=== PATIENT | female | born 1945 | race Caucasian/White ===

== ENCOUNTER 2017-06-01 11:11 | Emergency (ER) | payer MEDICARE, BC ==
[2017-06-01] MEDS ORDERED: Ondansetron 4 MG/2 ML SDV IVPUSH ONE (11:31)
[2017-06-01] MEDS ORDERED: Sodium Chloride 0.9% 1,000 ML IV ONE (11:32)
[2017-06-01] MEDS ORDERED: Levofloxacin/Dextrose 5%-Water 500 MG in Premix Bag 1 BAG IV ONE (14:57)
[2017-06-01] MEDS ORDERED: Meclizine 25 MG Tab PO ONE (14:57)
--- NOTE | 2017-06-01 16:14 | EDM.PDOC ---
ED HPI GENERAL MEDICAL PROBLEM - General Chief Complaint: Neuro Symptoms/Deficits Stated Complaint: PAIN Time Seen by Provider: 06/01/17 11:20 Source of Information: Reports: Patient, Family History Limitations: Reports: No Limitations - History of Present Illness INITIAL COMMENTS - FREE TEXT/NARRATIVE: 71 y.o.w.f came with her SO due to Dizziness and lower abd. pain. Pt is not able to ambulate due to severe dizziness. No H/O Vertigo. Pt was brought to the ed by his SO by wheelchair. Dizziness got worse when turning the head. as per SO , pt is confused, disoriented as well. No N/V/D or any other acute medical issues. BP 150/69 pulse 64 temp 36.4 pulse ox 97% Onset: Today Onset Date: 05/03/17 Onset Time: 15:00 Duration: Intermittent Location: Reports: Head, Abdomen - Related Data Allergies Allergy/AdvReac Type Severity Reaction Status Date / Time aspirin Allergy Pain Verified 06/01/17 11:26 Home Meds: Home Meds Acetaminophen [Tylenol Extra Strength] 500 mg PO Q4H PRN 06/01/17 [History] Amphetamine/Dextroamphetamine [Adderall] 10 mg PO DAILY 06/01/17 [History] Ciprofloxacin HCl [Cipro] 500 mg PO BID #20 tablet 06/01/17 [Rx] Meclizine [Antivert] 25 mg PO Q6H PRN #20 tab.chew 06/01/17 [Rx] Pseudoephedrine HCl [Sudafed 12-Hour] 120 mg PO DAILY 06/01/17 [History] Past Medical History HEENT History: Reports: Cataract Gastrointestinal History: Reports: Other (See Below) Other Gastrointestinal History: Redundant colon- problem passing stool 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: 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 History: Reports: Other (See Below) Other Neuro History: Headaches Psychiatric History: Reports: Anxiety, Depression Dermatologic History: Reports: Eczema - Infectious Disease History Infectious Disease History: Reports: Chicken Pox, Measles, Mumps - Past Surgical History HEENT Surgical History: Reports: Cataract Surgery, Tonsillectomy Other Respiratory Surgeries/Procedures: congestion issues GI Surgical History: Reports: Colonoscopy Female Surgical History: Reports: None 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 Surgical History: Reports: None Social & Family History - Family History Family Medical History: Noncontributory - Tobacco Use Smoking Status *Q: Never Smoker Second Hand Smoke Exposure: No - Caffeine Use Caffeine Use: Reports: Tea - Recreational Drug Use Recreational Drug Use: No ED ROS GENERAL - Review of Systems Review Of Systems: See Below Constitutional: Reports: Malaise, Fatigue HEENT: Reports: No Symptoms Respiratory: Reports: No Symptoms Cardiovascular: Reports: No Symptoms Endocrine: Reports: No Symptoms GI/Abdominal: Reports: Abdominal Pain (lower abd. ) : Reports: Dysuria, Frequency, Hematuria Musculoskeletal: Reports: No Symptoms Skin: Reports: No Symptoms 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: Reports: No Symptoms Psychiatric: Reports: No Symptoms Hematologic/Lymphatic: Reports: No Symptoms Immunologic: Reports: No Symptoms ED EXAM, NEURO - Physical Exam Exam: See Below Exam Limited By: Altered Mental Status General Appearance: Alert, WD/WN, Moderate Distress, Thin Eye Exam: Bilateral Eye: Normal Inspection Ears: Normal External Exam Nose: Normal Inspection, Normal Mucosa Throat/Mouth: Other (dry mucosal membrane) Head Exam: Atraumatic, Normocephalic Neck: Normal Inspection, Supple, Non-Tender, Full Range of Motion Respiratory/Chest: No Respiratory Distress, Lungs Clear, Normal Breath Sounds Cardiovascular: Normal Peripheral Pulses, Regular Rate, Rhythm, No Edema, No Gallop GI/Abdominal: Normal Bowel Sounds (Female) Exam: Deferred Rectal (Female) Exam: Deferred 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: Alert, Normal Dorsiflexion, CN II-XII Intact, Difficulty Walking ( due to dizziness) Back Exam: Normal Inspection, Full Range of Motion Extremities: Normal Inspection, Normal Range of Motion, Non-Tender Psychiatric: Normal Affect, Normal Mood Skin Exam: Warm, Dry, Intact, Normal Color, No Rash Course - Vital Signs Text/Narrative:: 71 y.o.w.f came with her SO due to Dizziness and lower abd. pain. Pt is not able to ambulate due to severe dizziness. No H/O Vertigo. Pt was brought to the ed by his SO by wheelchair. Dizziness got worse when turning the head. as per SO , pt is confused, disoriented as well. No N/V/D or any other acute medical issues. BP 150/69 pulse 64 temp 36.4 pulse ox 97% PE: Dry mucosal membranes bilat nystagmus, lower abd. pain Imaging: CT Head: NAD Labs: UA pos for UTI with hematuria Impression: Dehydration, Vertigo, UTI Tx: NS, Levoquine, Antivert Reexam; Improved, pt was able to ambulate, wants to be d/c Plan: D/C with instruction Last Recorded V/S: Last Vital Signs Temp 36.6 C 06/01/17 17:05 Pulse 75 06/01/17 17:05 Resp 20 06/01/17 17:05 BP 140/69 06/01/17 17:05 Pulse Ox 99 06/01/17 17:05 - Orders/Labs/Meds Labs: Laboratory Tests 06/01/17 06/01/17 06/01/17 Range/Units 11:50 11:50 11:50 WBC 5.2 (4.5-12.0) X10-3/uL RBC 5.04 (3.23-5.20) x10(6)uL Hgb 15.0 (11.5-15.5) g/dL Hct 43.4 (30.0-51.3) % MCV 86.1 (80-96) fL MCH 29.6 (27.7-33.6) pg MCHC 34.4 (32.2-35.4) g/dL RDW 13.8 (11.5-15.5) % Plt Count 336 (125-369) X10(3)uL MPV 7.4 (7.4-10.4) fL Neut % (Auto) 64.3 (46-82) % Lymph % (Auto) 27.7 (13-37) % [place] % (Auto) 6.8 (4-12) % Eos % (Auto) 1 (1.0-5.0) % Baso % (Auto) 1 (0-2) % Neut # (Auto) 3.4 (1.6-8.3) # Lymph # (Auto) 1.4 (0.6-5.0) # [place] # (Auto) 0.4 (0.0-1.3) # Eos # (Auto) 0.0 (0.0-0.8) # Baso # (Auto) 0.0 (0.0-0.2) # PT 11.6 H (8.7-11.1) INR 1.15 H (0.89-1.13) Sodium 139 (135-145) mmol/L Potassium 3.8 (3.5-5.3) mmol/L Chloride 103 (100-110) mmol/L Carbon Dioxide 29 (21-32) mmol/L BUN 19 H (7-18) mg/dL Creatinine 0.7 (0.55-1.02) mg/dL Est Cr Clr Drug Dosing 75.44 mL/min Estimated GFR (MDRD) > 60 (>60) BUN/Creatinine Ratio 27.1 H (9-20) Glucose 119 H (80-116) mg/dL Calcium 9.1 (8.6-10.2) mg/dL NT-Pro-B Natriuret Pep (<=125) pg/mL Urine Color (YELLOW) Urine Appearance (CLEAR) Urine pH (5.0-6.5) Ur Specific [place] (1.010-1.025) Urine Protein (NEGATIVE) mg/dL Urine Glucose (UA) (NEGATIVE) mg/dL Urine Ketones (NEGATIVE) mg/dL Urine Occult Blood (NEGATIVE) Urine Nitrite (NEGATIVE) Urine Bilirubin (NEGATIVE) Urine Urobilinogen (NEGATIVE) mg/dL Ur Leukocyte Esterase (NEGATIVE) Urine RBC (0) Urine WBC (0) Ur Squamous Epith Cells (NS,R,O) Urine Bacteria (NS) 06/01/17 06/01/17 Range/Units 11:50 13:48 WBC (4.5-12.0) X10-3/uL RBC (3.23-5.20) x10(6)uL Hgb (11.5-15.5) g/dL Hct (30.0-51.3) % MCV (80-96) fL MCH (27.7-33.6) pg MCHC (32.2-35.4) g/dL RDW (11.5-15.5) % Plt Count (125-369) X10(3)uL MPV (7.4-10.4) fL Neut % (Auto) (46-82) % Lymph % (Auto) (13-37) % [place] % (Auto) (4-12) % Eos % (Auto) (1.0-5.0) % Baso % (Auto) (0-2) % Neut # (Auto) (1.6-8.3) # Lymph # (Auto) (0.6-5.0) # [place] # (Auto) (0.0-1.3) # Eos # (Auto) (0.0-0.8) # Baso # (Auto) (0.0-0.2) # PT (8.7-11.1) INR (0.89-1.13) Sodium (135-145) mmol/L Potassium (3.5-5.3) mmol/L Chloride (100-110) mmol/L Carbon Dioxide (21-32) mmol/L BUN (7-18) mg/dL Creatinine (0.55-1.02) mg/dL Est Cr Clr Drug Dosing mL/min Estimated GFR (MDRD) (>60) BUN/Creatinine Ratio (9-20) Glucose (80-116) mg/dL Calcium (8.6-10.2) mg/dL NT-Pro-B Natriuret Pep 205 H (<=125) pg/mL Urine Color Yellow (YELLOW) Urine Appearance Cloudy (CLEAR) Urine pH 6.0 (5.0-6.5) Ur Specific [place] 1.025 (1.010-1.025) Urine Protein Negative (NEGATIVE) mg/dL Urine Glucose (UA) Normal (NEGATIVE) mg/dL Urine Ketones 15 H (NEGATIVE) mg/dL Urine Occult Blood Moderate H (NEGATIVE) Urine Nitrite Negative (NEGATIVE) Urine Bilirubin Negative (NEGATIVE) Urine Urobilinogen 1 H (NEGATIVE) mg/dL Ur Leukocyte Esterase Moderate H (NEGATIVE) Urine RBC 5-10 (0) Urine WBC 20-30 H (0) Ur Squamous Epith Cells Few H (NS,R,O) Urine Bacteria Many H (NS) Meds: Medications Discontinued Medications Generic Name Dose Route Start Last Admin Trade Name Grey PRN Reason Stop Dose Admin Sodium Chloride 1,000 mls @ 999 mls/hr 06/01/17 11:32 06/01/17 12:11 Normal Saline IV 06/01/17 12:32 999 mls/hr .BOLUS ONE Administration Levofloxacin/Dextrose 500 mg/ 100 mls @ 100 mls/hr 06/01/17 14:57 06/01/17 15 :04 Premix IV 06/01/17 15:56 100 mls/hr ONETIME ONE Administration Meclizine HCl 50 mg 06/01/17 14:57 06/01/17 15:03 Antivert PO 06/01/17 14:58 50 mg ONETIME ONE Administration Ondansetron HCl 8 mg 06/01/17 11:31 06/01/17 12:30 Zofran IVPUSH 06/01/17 11:32 8 mg ONETIME ONE Administration Departure - Departure Time of Disposition: 16:39 Disposition: Home, Self-Care 01 Condition: Good Clinical Impression: Dehydration, Vertigo UTI (urinary tract infection) Qualifiers: Urinary tract infection type: acute cystitis Hematuria presence: with hematuria Qualified Code(s): N30.01 - Acute cystitis with hematuria - Discharge Information Prescriptions: Ciprofloxacin HCl [Cipro] 500 mg PO BID #20 tablet Meclizine [Antivert] 25 mg PO Q6H PRN #20 tab.chew PRN Reason: Dizziness Instructions: Vertigo, [id number], Urinary Tract Infection, Adult, Dehydration, Elderly, [id number] Referrals: Emily Ivy, K[employer] WORK SUPERVISOR [Primary Care Provider] - Forms: ED Department Discharge Additional Instructions: Please increase water inake, please take cipro and antivert as recommended, please follow up, come back if your symptoms get worse acutely
== END 2017-06-01 17:10 | disposition home or self-care (01) ==
LOC: FB.ED 11:11
DX: N30.01 Acute cystitis with hematuria (principal); E86.0 Dehydration; Z88.6 Allergy status to analgesic agent
CPT/HCPCS: 36415; 70450; 80048; 81001; 83880; 85025; 85610; 87086; 87088; 96361; 96365; 96375; 99284; A9270; J1956; J2405; J7040; 87186; 99283

== ENCOUNTER 2018-07-07 19:48 | Emergency (ER) | payer MEDICARE, BC ==
--- NOTE | 2018-07-07 20:04 | EDM.PDOC ---
ED HPI GENERAL MEDICAL PROBLEM - General Stated Complaint: BLADDER INFECTION Time Seen by Provider: 07/07/18 19:48 Source of Information: Reports: Patient, Family History Limitations: Reports: No Limitations - History of Present Illness INITIAL COMMENTS - FREE TEXT/NARRATIVE: 72 y.o.w.f come to the ed with painful and frequent urinations, no trauma no other acute medical issues. BP 154/82 Pulse ox 98% on RA Temp 98.3 RR 18 Pulse 75 Onset Date: 07/07/18 Onset Time: 08:00 Duration: Day(s):, Getting Worse, Intermittent Location: Reports: Pelvis Quality: Reports: Burning Severity: Moderate Improves with: Reports: None Worsens with: Reports: None Context: Reports: Other Associated Symptoms: Reports: No Other Symptoms - Related Data Allergies Allergy/AdvReac Type Severity Reaction Status Date / Time aspirin Allergy Pain Verified 06/01/17 11:26 Home Meds: Home Meds Acetaminophen [Tylenol Extra Strength] 500 mg PO Q4H PRN 06/01/17 [History] Amphetamine/Dextroamphetamine [Adderall] 10 mg PO DAILY 06/01/17 [History] Ciprofloxacin HCl [Cipro] 500 mg PO BID #20 tablet 06/01/17 [Rx] Meclizine [Antivert] 25 mg PO Q6H PRN #20 tab.chew 06/01/17 [Rx] Pseudoephedrine HCl [Sudafed 12-Hour] 120 mg PO DAILY 06/01/17 [History] Ciprofloxacin HCl [Cipro] 500 mg PO BID #20 tablet 07/07/18 [Rx] Phenazopyridine HCl [Pyridium] 200 mg PO Q8HR #9 tablet 07/07/18 [Rx] Past Medical History HEENT History: Reports: Cataract Gastrointestinal History: Reports: Other (See Below) Other Gastrointestinal History: Redundant colon- problem passing stool 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: 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 History: Reports: Other (See Below) Other Neuro History: Headaches Psychiatric History: Reports: Anxiety, Depression Dermatologic History: Reports: Eczema - Infectious Disease History Infectious Disease History: Reports: Chicken Pox, Measles, Mumps - Past Surgical History HEENT Surgical History: Reports: Cataract Surgery, Tonsillectomy Other Respiratory Surgeries/Procedures: congestion issues GI Surgical History: Reports: Colonoscopy Female Surgical History: Reports: None 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 Surgical History: Reports: None Social & Family History - Family History Family Medical History: Noncontributory - Caffeine Use Caffeine Use: Reports: Tea ED ROS GENERAL - Review of Systems Review Of Systems: See Below Constitutional: Reports: No Symptoms HEENT: Reports: No Symptoms Respiratory: Reports: No Symptoms Cardiovascular: Reports: No Symptoms Endocrine: Reports: No Symptoms GI/Abdominal: Reports: No Symptoms : Reports: Dysuria, Frequency Musculoskeletal: Reports: No Symptoms Skin: Reports: No Symptoms 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: Reports: No Symptoms Psychiatric: Reports: No Symptoms Hematologic/Lymphatic: Reports: No Symptoms Immunologic: Reports: No Symptoms ED EXAM, RENAL/ - Physical Exam Exam: See Below Exam Limited By: No Limitations General Appearance: Alert, WD/WN, Mild Distress Eye Exam: Bilateral Eye: Normal Inspection Ears: Normal External Exam, Normal Canal Nose: Normal Inspection, Normal Mucosa, No Blood Throat/Mouth: Normal Inspection, Normal Lips, Normal Voice, No Airway Compromise Head: Atraumatic, Normocephalic Neck: Normal Inspection, Supple, Non-Tender, Full Range of Motion Respiratory/Chest: No Respiratory Distress, Lungs Clear, Normal Breath Sounds, No Accessory Muscle Use, Chest Non-Tender Cardiovascular: Normal Peripheral Pulses, Regular Rate, Rhythm, No Edema, No Gallop, No JVD, No Murmur, No Rub GI/Abdominal: Normal Bowel Sounds, Soft, Non-Tender, No Organomegaly, No Distention, No Abnormal Bruit, No Mass, Pelvis Stable (Female) Exam: Deferred Rectal (Female) Exam: Deferred Back Exam: Normal Inspection, Full Range of Motion Extremities: Normal Inspection, Normal Range of Motion, Non-Tender, No Pedal Edema, Normal Capillary Refill 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: Alert, Oriented, CN II-XII Intact, Normal Cognition, Normal Gait, Normal Reflexes, No Motor/Sensory Deficits Psychiatric: Normal Affect, Normal Mood Skin Exam: Warm, Dry, Intact, Normal Color, No Rash Lymphatic: No Adenopathy Course - Vital Signs Text/Narrative:: 72 y.o.w.f come to the ed with painful and frequent urinations, no trauma no other acute medical issues. BP 154/82 Pulse ox 98% on RA Temp 98.3 RR 18 Pulse 75 PE: WNWD W F with dysuria Labs: UA pos for UTI< U Cx result is pending Impression: UTI Tx: Levoquine, Pyridium Reexam: Improved Plan: D/C with instructions - Orders/Labs/Meds Orders: Active Orders 24 hr Category Date Time Status CULTURE URINE [RM] Stat Lab 07/07/18 19:55 Received Phenazopyridine [Urinary Pain Relief] Med 07/08/18 09:00 Active 95 mg PO TIDPC Medication Orders Phenazopyridine HCl (Urinary Pain Relief) 95 mg PO TIDPC RICHARD Last Admin: 07/07/18 20:31 Dose: 95 mg Labs: Laboratory Tests 07/07/18 Range/Units 19:55 Urine Color Yellow (YELLOW) Urine Appearance Clear (CLEAR) Urine pH 7.0 H (5.0-6.5) Ur Specific [place] 1.015 (1.010-1.025) Urine Protein Negative (NEGATIVE) mg/dL Urine Glucose (UA) Normal (NEGATIVE) mg/dL Urine Ketones Negative (NEGATIVE) mg/dL Urine Occult Blood Negative (NEGATIVE) Urine Nitrite Negative (NEGATIVE) Urine Bilirubin Negative (NEGATIVE) Urine Urobilinogen Normal (NEGATIVE) mg/dL Ur Leukocyte Esterase Small H (NEGATIVE) Urine RBC 0-5 (0) Urine WBC 0-5 (0) Ur Squamous Epith Cells Few H (NS,R,O) Urine Bacteria Moderate H (NS) Meds: Medications Generic Name Dose Route Start Last Admin Trade Name Freq PRN Reason Stop Dose Admin Phenazopyridine HCl 95 mg 07/08/18 09:00 07/07/18 20:31 Urinary Pain Relief PO 95 mg TIDPC RICHARD Administration Discontinued Medications Generic Name Dose Route Start Last Admin Trade Name Freq PRN Reason Stop Dose Admin Levofloxacin 500 mg 07/07/18 20:08 07/07/18 20:27 Levaquin PO 07/07/18 20:09 500 mg ONETIME ONE Administration Phenazopyridine HCl Confirm 07/07/18 20:30 Urinary Pain Relief Administered 07/07/18 20:31 Dose 95 mg .ROUTE .STK-MED ONE Departure - Departure Time of Disposition: 20:10 Disposition: Home, Self-Care 01 Condition: Good Clinical Impression: UTI (urinary tract infection) Qualifiers: Urinary tract infection type: acute cystitis Hematuria presence: with hematuria Qualified Code(s): N30.01 - Acute cystitis with hematuria - Discharge Information Prescriptions: Phenazopyridine HCl [Pyridium] 200 mg PO Q8HR #9 tablet Ciprofloxacin HCl [Cipro] 500 mg PO BID #20 tablet Referrals: Emily Ivy, SR. PAYROLL PROCESSOR [Primary Care Provider] - Forms: ED Department Discharge Additional Instructions: Please increase water intake, please take the meds as recommended, please f/u, come back if your symptoms get worse acutely. - My Orders Last 24 Hours: My Active Orders 07/07/18 19:55 CULTURE URINE [RM] Stat 07/08/18 09:00 Phenazopyridine [Urinary Pain Relief] 95 mg PO TIDPC - Assessment/Plan Last 24 Hours: My Active Orders 07/07/18 19:55 CULTURE URINE [RM] Stat 07/08/18 09:00 Phenazopyridine [Urinary Pain Relief] 95 mg PO TIDPC
[2018-07-07] MEDS ORDERED: Levofloxacin 500 MG Tab PO ONE (20:08)
[2018-07-07] MEDS ORDERED: Phenazopyridine 95 MG Tab ONE (20:30)
[2018-07-08] MEDS ORDERED: Phenazopyridine 95 MG Tab PO SCH (09:00)
== END 2018-07-07 20:40 | disposition home or self-care (01) ==
LOC: FB.ED 19:48
DX: N30.01 Acute cystitis with hematuria (principal); Z79.899 Other long term (current) drug therapy; Z88.6 Allergy status to analgesic agent; Z90.89 Acquired absence of other organs
CPT/HCPCS: 81001; 87086; 99283; A9270-GY

== ENCOUNTER 2018-07-10 16:04 | Emergency (ER) | payer MEDICARE, BC ==
[2018-07-10] MEDS ORDERED: Ketorolac 30 MG/ML SDV IM ONE (16:29)
--- NOTE | 2018-07-10 16:31 | EDM.PDOC ---
ED HPI GENERAL MEDICAL PROBLEM - General Chief Complaint: Back Pain or Injury Stated Complaint: BACK PAIN Time Seen by Provider: 07/10/18 16:04 Source of Information: Reports: Patient, Family History Limitations: Reports: No Limitations - History of Present Illness INITIAL COMMENTS - FREE TEXT/NARRATIVE: 72 y.o.w.f came to the ed due to mid lower back pain and bilateral plank pain. Pt had a BM ELECTROLYSIS INVESTIGATOR, which improved her symptoms somewhat. No Trauma. Pt seen by me last Sunday for UTI symptoms. Pt was given Cipro and her dysuria subsided. Pt is scheduled for a colonoscopy this Sunday. She has a few episodes with blood in her stool. No N/V/D or any other acute medical issues. BP 131/90 RR 18 Pulse ox 97% on RA Temp 36.8 pulse 81 Onset Date: 07/09/18 Onset Time: 06:00 Duration: Day(s):, Getting Worse, Intermittent Location: Reports: Abdomen, Back Quality: Reports: Dull, Pressure Severity: Moderate Improves with: Reports: Rest Worsens with: Reports: Movement Context: Reports: Sick Contact - Related Data Allergies Allergy/AdvReac Type Severity Reaction Status Date / Time aspirin Allergy Stomach Verified 07/10/18 16:46 Upset bupropion [From Wellbutrin] Allergy Stomach Verified 07/10/18 16:46 Upset diazepam [From Valium] Allergy Hallucinati Verified 07/10/18 16:46 ons Home Meds: Home Meds Acetaminophen [Tylenol Extra Strength] 500 mg PO Q4H PRN 06/01/17 [History] Ciprofloxacin HCl [Cipro] 500 mg PO BID #20 tablet 07/07/18 [Rx] Phenazopyridine HCl [Pyridium] 200 mg PO Q8HR #9 tablet 07/07/18 [Rx] Lisinopril 10 mg PO DAILY 07/08/18 [History] Past Medical History HEENT History: Reports: Cataract Gastrointestinal History: Reports: Other (See Below) Other Gastrointestinal History: Redundant colon- problem passing stool 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 Dermatologic History: Reports: Eczema - Infectious Disease History Infectious Disease History: Reports: Chicken Pox, Measles, Mumps - Past Surgical History HEENT Surgical History: Reports: Cataract Surgery, Tonsillectomy Other Respiratory Surgeries/Procedures: congestion issues GI Surgical History: Reports: Colonoscopy Female Surgical History: Reports: None 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 Surgical History: Reports: None Social & Family History - Family History Family Medical History: Noncontributory - Caffeine Use Caffeine Use: Reports: Tea ED ROS GENERAL - Review of Systems Review Of Systems: See Below Constitutional: Reports: No Symptoms HEENT: Reports: No Symptoms Respiratory: Reports: No Symptoms Cardiovascular: Reports: No Symptoms Endocrine: Reports: No Symptoms GI/Abdominal: Reports: Abdominal Pain (flank pain), Constipation, Hematochezia ( one time) : Reports: No Symptoms Musculoskeletal: Reports: Back Pain Skin: Reports: No Symptoms 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: Reports: No Symptoms Psychiatric: Reports: No Symptoms Hematologic/Lymphatic: Reports: No Symptoms Immunologic: Reports: No Symptoms ED EXAM,LOWER BACK PAIN/INJURY - Physical Exam Exam: See Below Exam Limited By: Physical Impairment General Appearance: Alert, WD/WN, Mild Distress Eye Exam: Bilateral Eye: Normal Inspection Ears: Normal External Exam Nose: Normal Inspection, Normal Mucosa Throat/Mouth: Normal Inspection, Normal Lips, Normal Voice, No Airway Compromise Head: Atraumatic, Normocephalic Neck: Normal Inspection, Supple, Non-Tender, Full Range of Motion Respiratory/Chest: No Respiratory Distress, Lungs Clear, Normal Breath Sounds, No Accessory Muscle Use, Chest Non-Tender Cardiovascular: Normal Peripheral Pulses, Regular Rate, Rhythm, No Edema, No Murmur GI/Abdominal: Normal Bowel Sounds, Soft, Pelvis Stable, Tender (lower back/si joint, CVA tenderness) (Female) Exam: Deferred Rectal (Female) Exam: Deferred Back Exam: Normal Inspection, CVA Tenderness (R), CVA Tenderness (L), Decreased Range of Motion Extremities: Normal Inspection, Normal Range of Motion, Non-Tender, No Pedal Edema, Normal Capillary Refill 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: Alert, Normal Mood/Affect, Normal Dorsiflexion, CN II-XII Intact, Normal Gait, Oriented x 3 Psychiatric: Normal Affect, Normal Mood Skin Exam: Warm, Dry, Intact, Normal Color, No Rash Lymphatic: No Adenopathy Course - Vital Signs Text/Narrative:: 72 y.o.w.f came to the ed due to mid lower back pain and bilateral plank pain. Pt had a BM ELECTROLYSIS INVESTIGATOR, which improved her symptoms somewhat. No Trauma. Pt seen by me last Sunday for UTI symptoms. Pt was given Cipro and her dysuria subsided. Pt is scheduled for a colonoscopy this Sunday. She has a few episodes with blood in her stool. No N/V/D or any other acute medical issues. BP 131/90 RR 18 Pulse ox 97% on RA Temp 36.8 pulse 81 PE: WNWD W F with low back pain, alina flank pain and blood in her stool X3 Imaging: Abd/pelvis: Smal left lung nodule 10 mm (possible old) Labs: CBC whowed a WBC of 3.9 UA pos for nitrated, no WBC in urine. BMP nl OLactic acid 0.9 Impression: Viral syndrome, low back pain, Pos Urine nitrates. Nodule 10 mm in lung Tx:Toradol Reexam: Improved Plan: D/C with instructions Last Recorded V/S: Last Vital Signs Temp 36.6 C 07/10/18 16:05 Pulse 85 07/10/18 16:05 Resp 18 07/10/18 16:05 BP 131/90 07/10/18 16:05 Pulse Ox 97 07/10/18 16:05 - Orders/Labs/Meds Orders: Active Orders 24 hr Category Date Time Status Abdomen Pelvis w Cont [CT] Stat Exams 07/10/18 16:28 Taken Labs: Laboratory Tests 07/10/18 07/10/18 07/10/18 Range/Units 16:40 16:40 16:40 WBC 3.9 L (4.5-12.0) X10-3/uL RBC 5.07 (3.23-5.20) x10(6)uL Hgb 15.0 (11.5-15.5) g/dL Hct 45.0 (30.0-51.3) % MCV 88.8 (80-96) fL MCH 29.7 (27.7-33.6) pg MCHC 33.4 (32.2-35.4) g/dL RDW 14.1 (11.5-15.5) % Plt Count 342 (125-369) X10(3)uL MPV 7.6 (7.4-10.4) fL Neut % (Auto) 54.8 (46-82) % Lymph % (Auto) 32.1 (13-37) % Teller % (Auto) 11.2 (4-12) % Eos % (Auto) 1 (1.0-5.0) % Baso % (Auto) 1 (0-2) % Neut # (Auto) 2.2 (1.6-8.3) # Lymph # (Auto) 1.3 (0.6-5.0) # Teller # (Auto) 0.4 (0.0-1.3) # Eos # (Auto) 0.0 (0.0-0.8) # Baso # (Auto) 0.0 (0.0-0.2) # PT 10.9 (8.7-11.1) INR 1.12 (0.89-1.13) Sodium 137 (135-145) mmol/L Potassium 4.1 (3.5-5.3) mmol/L Chloride 101 (100-110) mmol/L Carbon Dioxide 29 (21-32) mmol/L BUN 13 (7-18) mg/dL Creatinine 0.9 (0.55-1.02) mg/dL Est Cr Clr Drug Dosing TNP Estimated GFR (MDRD) > 60 (>60) BUN/Creatinine Ratio 14.4 (9-20) Glucose 111 (80-116) mg/dL Lactic Acid (0.4-2.2) mmol/L Calcium 9.8 (8.6-10.2) mg/dL Urine Color (YELLOW) Urine Appearance (CLEAR) Urine pH (5.0-6.5) Ur Specific [place] (1.010-1.025) Urine Protein (NEGATIVE) mg/dL Urine Glucose (UA) (NEGATIVE) mg/dL Urine Ketones (NEGATIVE) mg/dL Urine Occult Blood (NEGATIVE) Urine Nitrite (NEGATIVE) Urine Bilirubin (NEGATIVE) Urine Urobilinogen (NEGATIVE) mg/dL Ur Leukocyte Esterase (NEGATIVE) Urine RBC (0) Urine WBC (0) Ur Squamous Epith Cells (NS,R,O) Urine Bacteria (NS) 07/10/18 07/10/18 Range/Units 16:40 16:50 WBC (4.5-12.0) X10-3/uL RBC (3.23-5.20) x10(6)uL Hgb (11.5-15.5) g/dL Hct (30.0-51.3) % MCV (80-96) fL MCH (27.7-33.6) pg MCHC (32.2-35.4) g/dL RDW (11.5-15.5) % Plt Count (125-369) X10(3)uL MPV (7.4-10.4) fL Neut % (Auto) (46-82) % Lymph % (Auto) (13-37) % Teller % (Auto) (4-12) % Eos % (Auto) (1.0-5.0) % Baso % (Auto) (0-2) % Neut # (Auto) (1.6-8.3) # Lymph # (Auto) (0.6-5.0) # Teller # (Auto) (0.0-1.3) # Eos # (Auto) (0.0-0.8) # Baso # (Auto) (0.0-0.2) # PT (8.7-11.1) INR (0.89-1.13) Sodium (135-145) mmol/L Potassium (3.5-5.3) mmol/L Chloride (100-110) mmol/L Carbon Dioxide (21-32) mmol/L BUN (7-18) mg/dL Creatinine (0.55-1.02) mg/dL Est Cr Clr Drug Dosing Estimated GFR (MDRD) (>60) BUN/Creatinine Ratio (9-20) Glucose (80-116) mg/dL Lactic Acid 0.9 (0.4-2.2) mmol/L Calcium (8.6-10.2) mg/dL Urine Color Yellow (YELLOW) Urine Appearance Clear (CLEAR) Urine pH 7.0 H (5.0-6.5) Ur Specific [place] 1.005 L (1.010-1.025) Urine Protein 100 H (NEGATIVE) mg/dL Urine Glucose (UA) Normal (NEGATIVE) mg/dL Urine Ketones Negative (NEGATIVE) mg/dL Urine Occult Blood Negative (NEGATIVE) Urine Nitrite Positive H (NEGATIVE) Urine Bilirubin Moderate H (NEGATIVE) Urine Urobilinogen 8 H (NEGATIVE) mg/dL Ur Leukocyte Esterase Negative (NEGATIVE) Urine RBC 0-5 (0) Urine WBC 0-5 (0) Ur Squamous Epith Cells Rare (NS,R,O) Urine Bacteria Few H (NS) Meds: Medications Discontinued Medications Generic Name Dose Route Start Last Admin Trade Name Grey PRN Reason Stop Dose Admin Diatrizoate Meglum/Diatrizoate Sod 30 ml 07/10/18 17:00 07/10/18 17:43 Gastrografin 37% PO 30 ml . DIRECTED RICHARD Administration Iopamidol 75 ml 07/10/18 16:56 07/10/18 17:42 Isovue-370 (76%) IV 07/10/18 16:57 75 ml ONETIME ONE Administration Ketorolac Tromethamine 30 mg 07/10/18 16:29 07/10/18 17:15 Toradol IM 07/10/18 16:30 30 mg ONETIME ONE Administration Departure - Departure Time of Disposition: 18:34 Disposition: Home, Self-Care 01 Condition: Good Clinical Impression: Back pain at L4-L5 level UTI (urinary tract infection) Qualifiers: Urinary tract infection type: acute cystitis Hematuria presence: with hematuria Qualified Code(s): N30.01 - Acute cystitis with hematuria - Discharge Information Referrals: Emily Ivy [facility] [Primary Care Provider] - Forms: ED Department Discharge Additional Instructions: Please f/u. tale motrin with food, come back if your symptoms get worse acutely - My Orders Last 24 Hours: My Active Orders 07/10/18 16:28 Abdomen Pelvis w Cont [CT] Stat - Assessment/Plan Last 24 Hours: My Active Orders 07/10/18 16:28 Abdomen Pelvis w Cont [CT] Stat
[2018-07-10] MEDS ORDERED: Iopamidol 755 Mg/ML 75 ML Bottle IV ONE (16:56)
[2018-07-10] MEDS ORDERED: Diatrizoate Meglumine/Diatrizoate Sodium 37% 30 ML Bottle PO SCH (17:00)
== END 2018-07-10 18:40 | disposition home or self-care (01) ==
LOC: FB.ED 16:04
DX: N30.01 Acute cystitis with hematuria (principal); M54.5 Low back pain; R91.8 Other nonspecific abnormal finding of lung field; Z88.8 Allergy status to other drugs, medicaments and biological substances
CPT/HCPCS: 36415; 74177; 80048; 81001; 83605; 85025; 85610; 96372; 99284; J1885; Q9963; Q9967; 99283

== ENCOUNTER 2018-10-02 07:47 | Day surgery (SDC) | payer MEDICARE, BC ==
[~2018-10-02 07:47] MED LIST: Lactated Ringers 1,000 ML IV SCH; Sodium Chloride 0.9% 10 ML Syringe FLUSH PRN
[2018-10-02] MEDS ORDERED: Propofol 200 MG/20 ML SDV IV ONE (07:48)
[2018-10-02] MEDS ORDERED: Lidocaine 2% 100 MG/5 ML Syringe IVPUSH ONE (07:48)
--- NOTE | 2018-10-02 09:15 | PCM.OPNOTE ---
- General Post-Op/Procedure Note Date of Surgery/Procedure: 10/02/18 Operative Procedure(s): egd with bx Findings: gastroduodenitis fundic gland polyps Pre Op Diagnosis: epigastric abd pain Post-Op Diagnosis: gastroduodenitis. fundic gland polyps Anesthesia Technique: LUIS Primary Surgeon: Sergio Kerr Anesthesia Provider: Justin Florian Pathology: stomach and duodenum Complications: None Condition: Good Free Text/Narrative:: see dictation
--- NOTE | 2018-10-02 14:51 | OR ---
DATE OF OPERATION: 10/02/2018 SURGEON: Sergio Kerr MD PROCEDURE PERFORMED: Esophagogastroduodenoscopy with cold forceps biopsy. PREOPERATIVE DIAGNOSIS: History of epigastric abdominal pain, nausea. POSTOPERATIVE DIAGNOSIS: Gastroduodenitis and fundic gland hyperplasia. INDICATIONS FOR PROCEDURE: This is a 72-year-old white female who is referred with the above-mentioned complaints. She was offered and accepted upper endoscopy. PROCEDURE IN DETAIL: After an excellent IV sedation was administered, the bite block was inserted. The flexible endoscope was passed without difficulty down the patient's esophagus into the stomach. Stomach was insufflated. Scope passed through the pylorus to the second portion of the duodenum and slowly withdrawn. The following findings were noted. Duodenum demonstrates some diffuse duodenitis. Biopsies were taken. Stomach; diffuse gastritis especially in the area of the antrum. Biopsies were taken. She also has what appears to be fundic gland hyperplasia. Director Of Extension Work biopsies were taken of several of the polypoid appearing lesions to confirm the diagnosis. GE junction measured at 40 cm. The esophagus was unremarkable. The stomach was deflated. Scope was removed. The patient tolerated the procedure well and was taken to her room in good condition. /[id number] /MODL
== END 2018-10-02 10:03 | disposition home or self-care (01) ==
LOC: FB.SDS 07:47
PROVIDERS: ATTEND Surgery
DX: K29.30 Chronic superficial gastritis without bleeding (principal); K29.80 Duodenitis without bleeding; Z79.899 Other long term (current) drug therapy; Z88.6 Allergy status to analgesic agent
CPT/HCPCS: 00731-QZ; 88305; 88342; J2001; J2704; J7120

== ENCOUNTER 2021-06-10 15:51 | Emergency (ER) | payer MEDICARE, BC ==
[2021-06-10] MEDS ORDERED: Sodium Chloride 0.9% 1,000 ML IV ONE (17:47)
--- NOTE | 2021-06-10 19:37 | EDM.PDOC ---
ED HPI GENERAL MEDICAL PROBLEM - General Stated Complaint: WEAK Time Seen by Provider: 06/10/21 16:00 Source of Information: Reports: Patient History Limitations: Reports: No Limitations - History of Present Illness INITIAL COMMENTS - FREE TEXT/NARRATIVE: c/o weak no specific c/o, no pain, no n/v, no f/c/d says she has not felt like getting out of bed for 3d, says she is weak labs here are unremarkable except inc'd BUN, still not able to void after 1 liter NS, declined cath, says she wants to go home - Related Data Allergies Allergy/AdvReac Type Severity Reaction Status Date / Time aspirin Allergy Stomach Verified 10/02/18 08:05 Upset bupropion [From Wellbutrin] Allergy Stomach Verified 10/02/18 08:05 Upset diazepam [From Valium] Allergy Hallucinati Verified 10/02/18 08:05 ons Home Meds: Home Meds Acetaminophen [Tylenol Extra Strength] 500 mg PO Q4H PRN 06/01/17 [History] Lisinopril 10 mg PO DAILY 07/08/18 [History] Amphetamine/Dextroamphetamine [Adderall] 10 mg PO DAILY 10/01/18 [History] L Acidophil/B Lactis/B Longum [Florajen3] 460 mg PO DAILY 10/01/18 [History] Lanolin/Mineral Oil [Eucerin Original Lotion] 250 ml TP DAILY 10/01/18 [History] Omeprazole Magnesium [Prilosec Otc] 40 mg PO DAILY 10/01/18 [History] PARoxetine [Paxil] 20 mg PO DAILY 10/01/18 [History] polyethylene glycoL 3350 [MiraLAX] 17 gm PO DAILY 10/01/18 [History] Past Medical History HEENT History: Reports: Cataract Gastrointestinal History: Reports: Other (See Below) Other Gastrointestinal History: Redundant colon- problem passing stool 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 Dermatologic History: Reports: Eczema - Infectious Disease History Infectious Disease History: Reports: Chicken Pox, Measles, Mumps - Past Surgical History HEENT Surgical History: Reports: Cataract Surgery, Tonsillectomy Other Respiratory Surgeries/Procedures: congestion issues GI Surgical History: Reports: Colonoscopy Female Surgical History: Reports: None 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 Surgical History: Reports: None Social & Family History - Family History Family Medical History: No Pertinent Family History - Caffeine Use Caffeine Use: Reports: Coffee, Soda ED ROS GENERAL - Review of Systems Review Of Systems: See Below Constitutional: Reports: Weakness HEENT: Reports: No Symptoms Respiratory: Reports: No Symptoms Cardiovascular: Reports: No Symptoms Endocrine: Reports: No Symptoms GI/Abdominal: Reports: No Symptoms : Reports: No Symptoms Musculoskeletal: Reports: No Symptoms Skin: Reports: No Symptoms 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: Reports: No Symptoms Psychiatric: Reports: No Symptoms Hematologic/Lymphatic: Reports: No Symptoms Immunologic: Reports: No Symptoms ED EXAM, GENERAL - Physical Exam Exam: See Below Exam Limited By: No Limitations General Appearance: Alert, WD/WN, No Apparent Distress, Other (vague, alert, good eye contact, no dyspnea, talk complete sentences) Eye Exam: Bilateral Eye: PERRL Nose: Normal Inspection, Normal Mucosa Throat/Mouth: Normal Inspection, Normal Lips, Normal Voice, No Airway Compromise Head: Atraumatic Neck: Normal Inspection, Supple, Non-Tender, Full Range of Motion. No: Lymphadenopathy (R), Lymphadenopathy (L) Respiratory/Chest: No Respiratory Distress, Lungs Clear, Chest Non-Tender Cardiovascular: Regular Rate, Rhythm, No Edema, Other (mild dec'd turgor without tenting) GI/Abdominal: Normal Bowel Sounds, Soft, Non-Tender, No Distention Back Exam: Normal Inspection, Full Range of Motion Extremities: Normal Inspection, Normal Range of Motion, Non-Tender, No Pedal Edema 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: Alert, Oriented, CN II-XII Intact, Normal Cognition, No Motor/Sensory Deficits Psychiatric: Normal Affect, Normal Mood Skin Exam: Warm, Dry, Intact, Normal Color, No Rash Lymphatic: No Adenopathy Course - Orders/Labs/Meds Orders: Active Orders 24 hr Category Date Time Status URINALYSIS W/MICROSCOPIC [UA W/MICROSCOPIC] [URIN] Stat Lab 06/10/21 16:23 Ordered EKG 12 Lead [EK] Routine Ther 06/10/21 16:22 Ordered Labs: Laboratory Tests 06/10/21 06/10/21 06/10/21 Range/Units 16:30 16:30 16:30 WBC 5.1 (3.0-10.3) x10-3/uL RBC 5.28 H (3.60-5.20) x10(6)uL Hgb 15.3 (11.4-15.5) g/dL Hct 45.8 (34.2-48.2) % MCV 86.6 (76.7-100.5) fL MCH 28.9 (23.9-33.9) pg MCHC 33.4 (31.9-34.8) g/dL RDW 14.5 (12.3-16.5) % Plt Count 338 (151-488) x10(3)uL MPV 7.2 (7.1-12.4) fL Neut % (Auto) 56.8 (30.8-76.2) % Lymph % (Auto) 29.7 (18.4-52.1) % [place] % (Auto) 10.8 (4.4-15.7) % Eos % (Auto) 1.8 (0.6-8.1) % Baso % (Auto) 0.9 (0.2-1.5) % Neut # (Auto) 2.9 (1.5-6.3) x10-3/uL Lymph # (Auto) 1.5 (1.0-4.4) x10-3/uL [place] # (Auto) 0.6 (0.3-1.0) x10-3/uL Eos # (Auto) 0.1 (0.0-0.8) x10-3/uL Baso # (Auto) 0.0 (0.0-0.1) x10-3/uL Sodium 136 (135-145) mmol/L Potassium 4.0 (3.5-5.3) mmol/L Chloride 100 (100-110) mmol/L Carbon Dioxide 28 (21-32) mmol/L BUN 19 H (7-18) mg/dL Creatinine 0.9 (0.55-1.02) mg/dL Est Cr Clr Drug Dosing TNP Estimated GFR (MDRD) > 60 (>60) BUN/Creatinine Ratio 21.1 H (9-20) Glucose 122 H (80-116) mg/dL Calcium 9.4 (8.6-10.2) mg/dL Total Bilirubin 0.6 (0.1-1.3) mg/dL AST 31 H (5-25) IU/L ALT 36 (12-36) U/L Alkaline Phosphatase 88 (56-112) IU/L Troponin I 5.8 (4.0-60.3) pg/mL C-Reactive Protein (0.5-0.9) mg/dL Total Protein 7.6 (6.0-8.0) g/dL Albumin 3.7 (3.2-4.6) g/dL Globulin 3.9 g/dL Albumin/Globulin Ratio 1.0 TSH, Ultra Sensitive (0.36-3.74) IU/mL SARS-CoV-2 RNA (LEYLA) (NEGATIVE) 06/10/21 06/10/21 06/10/21 Range/Units 16:30 16:30 17:58 WBC (3.0-10.3) x10-3/uL RBC (3.60-5.20) x10(6)uL Hgb (11.4-15.5) g/dL Hct (34.2-48.2) % MCV (76.7-100.5) fL MCH (23.9-33.9) pg MCHC (31.9-34.8) g/dL RDW (12.3-16.5) % Plt Count (151-488) x10(3)uL MPV (7.1-12.4) fL Neut % (Auto) (30.8-76.2) % Lymph % (Auto) (18.4-52.1) % [place] % (Auto) (4.4-15.7) % Eos % (Auto) (0.6-8.1) % Baso % (Auto) (0.2-1.5) % Neut # (Auto) (1.5-6.3) x10-3/uL Lymph # (Auto) (1.0-4.4) x10-3/uL [place] # (Auto) (0.3-1.0) x10-3/uL Eos # (Auto) (0.0-0.8) x10-3/uL Baso # (Auto) (0.0-0.1) x10-3/uL Sodium (135-145) mmol/L Potassium (3.5-5.3) mmol/L Chloride (100-110) mmol/L Carbon Dioxide (21-32) mmol/L BUN (7-18) mg/dL Creatinine (0.55-1.02) mg/dL Est Cr Clr Drug Dosing Estimated GFR (MDRD) (>60) BUN/Creatinine Ratio (9-20) Glucose (80-116) mg/dL Calcium (8.6-10.2) mg/dL Total Bilirubin (0.1-1.3) mg/dL AST (5-25) IU/L ALT (12-36) U/L Alkaline Phosphatase (56-112) IU/L Troponin I (4.0-60.3) pg/mL C-Reactive Protein 0.2 L (0.5-0.9) mg/dL Total Protein (6.0-8.0) g/dL Albumin (3.2-4.6) g/dL Globulin g/dL Albumin/Globulin Ratio TSH, Ultra Sensitive 1.75 (0.36-3.74) IU/mL SARS-CoV-2 RNA (LEYLA) Negative (NEGATIVE) Meds: Medications Discontinued Medications Generic Name Dose Route Start Last Admin Trade Name Freq PRN Reason Stop Dose Admin Sodium Chloride 1,000 mls @ 999 mls/hr 06/10/21 17:47 06/10/21 17:59 Normal Saline IV 06/10/21 18:47 999 mls/hr .BOLUS ONE Administration - Re-Assessments/Exams Free Text/Narrative Re-Assessment/Exam: 06/10/21 19:40 w/u neg, unable to obtain urine here, pt wants to go home no evidence of depression or anxiety, no clear why she has chosen to stay in bed for 3 days, at bedside, he has been working pt agreed to bring a urine specimen to hosp lab for u/a EKG today at 17:13 with SR, rate 85, unifocal PVBs, no ST changes Departure - Departure Time of Disposition: 19:37 Disposition: Home, Self-Care 01 Condition: Good Clinical Impression: Weakness, Dehydration, Elevated BUN - Discharge Information *PRESCRIPTION DRUG MONITORING PROGRAM REVIEWED*: No *COPY OF PRESCRIPTION DRUG MONITORING REPORT IN PATIENT BARAK: No Instructions: Rehydration, Adult Referrals: Ya Vicente HOISTING PILE DRIVING ENGINEER [Primary Care Provider] - Additional Instructions: Increase fluids. Get adequate rest at night. However, get up during the daytime. It is important to eat or drink. There is no evidence of infection on your blood tests and your COVID test is negative. However, it is still possible to have a urinary tract infection. Collect a urine specimen at home and bring it into the hospital lab within 4 hours of collection. Continue your current meds. See your doctor in 3-4 days for further evaluation and recommendations. - My Orders Last 24 Hours: My Active Orders 06/10/21 16:22 EKG 12 Lead [EK] Routine 06/10/21 16:23 URINALYSIS W/MICROSCOPIC [UA W/MICROSCOPIC] [URIN] Stat - Assessment/Plan Last 24 Hours: My Active Orders 06/10/21 16:22 EKG 12 Lead [EK] Routine 06/10/21 16:23 URINALYSIS W/MICROSCOPIC [UA W/MICROSCOPIC] [URIN] Stat
== END 2021-06-10 20:01 | disposition home or self-care (01) ==
LOC: FB.ED 15:51
DX: R53.1 Weakness (principal); E86.0 Dehydration; R79.89 Other specified abnormal findings of blood chemistry; Z88.8 Allergy status to other drugs, medicaments and biological substances; Z20.822 Contact with and (suspected) exposure to COVID-19
CPT/HCPCS: 36415; 80053; 84443; 84484; 85025; 86140; 93005; 99285; J7030; U0002

== ENCOUNTER 2021-08-09 08:48 | Emergency (ER) | payer MEDICARE, BC ==
[2021-08-09] MEDS ORDERED: Ondansetron 4 MG/2 ML SDV IVPUSH ONE (09:12)
[2021-08-09] MEDS ORDERED: Sodium Chloride 0.9% 10 ML Syringe FLUSH PRN (09:12)
[2021-08-09] MEDS ORDERED: Sodium Chloride 0.9% 1,000 ML IV SCH (09:15)
== END 2021-08-09 10:30 | disposition home or self-care (01) ==
LOC: FB.ED 08:48
DX: A08.4 Viral intestinal infection, unspecified (principal); E86.0 Dehydration; Z88.5 Allergy status to narcotic agent; Z88.8 Allergy status to other drugs, medicaments and biological substances; Z79.899 Other long term (current) drug therapy
CPT/HCPCS: 36415; 80048; 85025; 96374; 99284-25; J2405; J7030

== ENCOUNTER 2021-09-03 20:23 | Emergency (ER) | payer MEDICARE, BC ==
[2021-09-03] MEDS ORDERED: traMADol 50 MG Tab PO ONE (20:24)
[2021-09-03] MEDS: Morphine 4 MG/ML VIAL IM ONE (20:31)
== END 2021-09-03 21:30 | disposition home or self-care (01) ==
LOC: FB.ED 20:23
DX: K59.01 Slow transit constipation (principal); Z88.5 Allergy status to narcotic agent; Z88.8 Allergy status to other drugs, medicaments and biological substances; Z79.899 Other long term (current) drug therapy
CPT/HCPCS: 96372; 99283; A9270-GY; J2270

== ENCOUNTER 2021-10-30 23:11 | Emergency (ER) | payer MEDICARE, BC ==
[2021-10-30] MEDS ORDERED: Sodium Chloride 0.9% 1,000 ML IV ONE (23:21)
[2021-10-30] MEDS ORDERED: Ondansetron 4 MG/2 ML SDV IVPUSH ONE (23:21)
[2021-10-30] MEDS ORDERED: Potassium Chloride 20 MEQ Tab.ER PO STA (23:45)
== END 2021-10-31 00:37 | disposition home or self-care (01) ==
LOC: FB.ED 23:11
DX: K52.9 Noninfective gastroenteritis and colitis, unspecified (principal); E86.0 Dehydration; E87.6 Hypokalemia; F41.9 Anxiety disorder, unspecified; F32.A Depression, unspecified; Z79.899 Other long term (current) drug therapy; Z88.6 Allergy status to analgesic agent; Z88.8 Allergy status to other drugs, medicaments and biological substances
CPT/HCPCS: 36415; 80048; 85025; 96374; 99282; 99284; A9270; J2405; J7030

== ENCOUNTER 2021-11-02 19:09 | Inpatient (IN) | payer MEDICARE, BC ==
[2021-11-02] MEDS ORDERED: Ondansetron 4 MG/2 ML SDV IVPUSH ONE (19:13)
[2021-11-02] MEDS ORDERED: Morphine 2 MG/ML SYRINGE IVPUSH ONE (19:13)
[2021-11-02] MEDS ORDERED: Sodium Chloride 0.9% 1,000 ML IV SCH (19:15)
[2021-11-02] MEDS: Sodium Chloride 0.9% 10 ML Syringe FLUSH PRN (19:20)
[2021-11-02] MEDS ORDERED: Iopamidol 755 Mg/ML 100 ML Bottle IV ONE (19:27)
[2021-11-02] MEDS: Morphine 2 MG/ML SYRINGE IVPUSH PRN ×2 (21:31→23:40)
[2021-11-02] MEDS: Ondansetron 4 MG/2 ML SDV IV PRN (23:39)
[2021-11-02] MEDS: Enoxaparin 40 MG/0.4 ML Syringe SUBCUT SCH (23:44)
[2021-11-03] MEDS: Morphine 2 MG/ML SYRINGE IVPUSH PRN ×3 (02:11→08:25)
[2021-11-03] MEDS: Sodium Chloride 0.9% 1,000 ML IV SCH ×3 (02:12→18:37)
[2021-11-03] MEDS: Ondansetron 4 MG/2 ML SDV IV PRN (05:17)
[2021-11-03] MEDS ORDERED: LORazepam 2 MG/ML SDV IVPUSH PRN (09:05)
[2021-11-03] MEDS ORDERED: Ketorolac 15 MG/ML SDV IVPUSH SCH (10:00)
[2021-11-03] MEDS: Pantoprazole 40 MG Vial IVPUSH SCH ×2 (10:15→21:05)
[2021-11-03] MEDS: Ketorolac 15 MG/ML SDV IVPUSH PRN (19:37)
[2021-11-03] MEDS: Sodium Chloride 0.9% 10 ML Syringe FLUSH PRN (19:41)
[2021-11-03] MEDS: Enoxaparin 40 MG/0.4 ML Syringe SUBCUT SCH (21:05)
[2021-11-04] MEDS: Morphine 2 MG/ML SYRINGE IVPUSH PRN ×2 (01:03→08:16)
[2021-11-04] MEDS: Sodium Chloride 0.9% 10 ML Syringe FLUSH PRN (01:05)
[2021-11-04] MEDS: Sodium Chloride 0.9% 1,000 ML IV SCH ×2 (02:35→10:53)
[2021-11-04] MEDS: Ketorolac 15 MG/ML SDV IVPUSH PRN ×2 (05:25→12:01)
[2021-11-04] MEDS: Ondansetron 4 MG/2 ML SDV IV PRN ×2 (07:10→12:14)
[2021-11-04] MEDS: Pantoprazole 40 MG Vial IVPUSH SCH (08:27)
== END 2021-11-04 14:00 | DRG 390 ==
LOC: FB.ED 19:09 → FB.MS 21:04
PROVIDERS: ADMIT Family Medicine; ATTEND Student in an Organized Health Care Education/Training Program
PROC: 0D9670Z Drainage of Stomach with Drainage Device, Via Natural or Artificial Opening (ICD-10-PCS; principal; 2021-11-03)
DX: K56.600 Partial intestinal obstruction, unspecified as to cause (principal); K56.7 Ileus, unspecified; Z51.5 Encounter for palliative care; K56.609 Unspecified intestinal obstruction, unspecified as to partial versus complete obstruction; K29.90 Gastroduodenitis, unspecified, without bleeding; F90.9 Attention-deficit hyperactivity disorder, unspecified type; R74.01 Elevation of levels of liver transaminase levels; E86.0 Dehydration; Z79.899 Other long term (current) drug therapy; F41.9 Anxiety disorder, unspecified; F32.A Depression, unspecified; Z88.8 Allergy status to other drugs, medicaments and biological substances; Z20.822 Contact with and (suspected) exposure to COVID-19
CPT/HCPCS: 36415; 74177; 80053; 83690; 85025; 96374; 96375; 99285; J2270; J2405; J3490; J7030; Q9967; 71045; 74019; 80048; 81001; 93005; 99284; C9113; J1650; J1885; J2060; U0002

== ENCOUNTER 2021-11-14 14:08 | Emergency (ER) | payer MEDICARE, BC ==
[2021-11-14] MEDS ORDERED: Sodium Chloride 0.9% 10 ML Syringe FLUSH PRN (14:36)
[2021-11-14] MEDS ORDERED: Lactated Ringers 1,000 ML IV ONE (15:09)
[2021-11-14] MEDS ORDERED: Lactated Ringers 1,000 ML IV SCH (16:45)
[2021-11-14] MEDS ORDERED: Hyoscyamine 0.125 MG/ML Bottle PO STA (18:01)
[2021-11-14] MEDS ORDERED: Hyoscyamine 0.125 MG Tab.SL ONE (18:07)
[2021-11-14] MEDS ORDERED: Hyoscyamine 0.125 MG Tab.SL SL ONE (18:10)
== END 2021-11-14 18:15 | disposition home or self-care (01) ==
LOC: FB.ED 14:08
DX: E86.0 Dehydration (principal); R19.7 Diarrhea, unspecified; Z79.899 Other long term (current) drug therapy; Z88.6 Allergy status to analgesic agent; Z88.8 Allergy status to other drugs, medicaments and biological substances
CPT/HCPCS: 36415; 80053; 81001; 85027; 86140; 96360; 96361; 99282; 99284-25; A9270-GY; J7120

== ENCOUNTER 2021-11-18 16:42 | Emergency (ER) | payer MEDICARE, BC ==
[2021-11-18] MEDS ORDERED: Sodium Chloride 0.9% 10 ML Syringe FLUSH PRN (17:16)
[2021-11-18] MEDS ORDERED: Morphine 4 MG/ML VIAL IVPUSH ONE (17:21)
[2021-11-18] MEDS ORDERED: Albuterol/Ipratropium 3.0-0.5 MG/3 ML Neb Soln NEB ONE (17:21)
[2021-11-18] MEDS ORDERED: methylPREDNISolone Sodium Succinate 125 MG/2 ML SDV IVPUSH STA (17:22)
[2021-11-18] MEDS ORDERED: Sodium Chloride 0.9% 1,000 ML IV SCH (17:30)
[2021-11-18] MEDS ORDERED: Ondansetron 4 MG/2 ML SDV IVPUSH STA (17:50)
== END 2021-11-18 21:30 | disposition home or self-care (01) ==
LOC: FB.ED 16:42
DX: R10.9 Unspecified abdominal pain (principal); R91.1 Solitary pulmonary nodule; Z91.041 Radiographic dye allergy status; Z88.8 Allergy status to other drugs, medicaments and biological substances; Z79.899 Other long term (current) drug therapy
CPT/HCPCS: 36415; 71045; 74176; 80053; 81001; 82150; 83690; 83880; 84484; 85025; 85379; 93005; 96361; 96374; 96375; 99284; J2270; J2405; J2930; J3490; J7030; 93010; 99283; J7620

== ENCOUNTER 2021-11-20 21:57 | Emergency (ER) | payer MEDICARE, BC ==
[2021-11-20] MEDS ORDERED: Acetaminophen/oxyCODONE 325-5 MG Tab PO ONE (21:58)
[2021-11-20] MEDS ORDERED: LORazepam 0.5 MG Tab PO ONE (22:20)
[2021-11-20] MEDS ORDERED: Acetaminophen/oxyCODONE 325-5 MG Tab PO STA (22:21)
== END 2021-11-20 23:47 | disposition home or self-care (01) ==
LOC: FB.ED 21:57
DX: K62.89 Other specified diseases of anus and rectum (principal); Z88.6 Allergy status to analgesic agent; Z88.8 Allergy status to other drugs, medicaments and biological substances; Z91.041 Radiographic dye allergy status; Z79.899 Other long term (current) drug therapy
CPT/HCPCS: 81003; 93005; 93010; 99282; 99284-25; A9270-GY

== ENCOUNTER 2021-12-04 18:38 | Emergency (ER) | payer MEDICARE, BC ==
[2021-12-04] MEDS ORDERED: LORazepam 2 MG/ML SDV IM ONE (19:42)
== END 2021-12-04 20:45 | disposition home or self-care (01) ==
LOC: FB.ED 18:38
DX: F41.9 Anxiety disorder, unspecified (principal); I10 Essential (primary) hypertension; Z91.041 Radiographic dye allergy status; Z88.5 Allergy status to narcotic agent; Z88.8 Allergy status to other drugs, medicaments and biological substances; Z79.899 Other long term (current) drug therapy
CPT/HCPCS: 96372; 99282; 99283; J2060

== ENCOUNTER 2021-12-20 20:25 | Emergency (ER) | payer MEDICARE, BC ==
[2021-12-20] MEDS ORDERED: Ketorolac 30 MG/ML SDV IM ONE (20:56)
== END 2021-12-20 22:34 | disposition home or self-care (01) ==
LOC: FB.ED 20:25
DX: M54.50 Low back pain, unspecified (principal); I10 Essential (primary) hypertension; Z91.041 Radiographic dye allergy status; Z88.8 Allergy status to other drugs, medicaments and biological substances; Z79.899 Other long term (current) drug therapy
CPT/HCPCS: 72100; 96372; 99282; 99283; J1885

== ENCOUNTER 2022-05-04 08:34 | Emergency (ER) | payer MEDICARE, BC ==
[2022-05-04] MEDS ORDERED: Ketorolac 30 MG/ML SDV IM ONE (09:10)
[2022-05-04] MEDS ORDERED: Sodium Chloride 0.9% 1,000 ML IV ONE (09:18)
[2022-05-04] MEDS ORDERED: Ketorolac 30 MG/ML SDV IVPUSH ONE (09:31)
[2022-05-04 09:45] LABS: ESTIMATED GFR 90 mL/min (>60)
[2022-05-04 10:16] LABS: CORONAVIRUS COVID-19 NAA NEGATIVE (NEGATIVE)
== END 2022-05-04 11:05 | disposition home or self-care (01) ==
LOC: FB.ED 08:34
DX: K08.89 Other specified disorders of teeth and supporting structures (principal); E86.0 Dehydration; I10 Essential (primary) hypertension; Z88.8 Allergy status to other drugs, medicaments and biological substances; Z91.041 Radiographic dye allergy status; Z79.899 Other long term (current) drug therapy; Z20.822 Contact with and (suspected) exposure to COVID-19
CPT/HCPCS: 0240U; 36415; 80053; 85025; 86140; 93005; 96361; 96374; 99283; J1885; J7030

== ENCOUNTER 2022-07-17 13:04 | Emergency (ER) | payer MEDICARE, BC ==
[2022-07-17 14:01] LABS: ESTIMATED GFR 94 mL/min (>60)
[2022-07-17 14:11] LABS: ACETAMINOPHEN < 2 ug/mL (<2)
[2022-07-17] MEDS ORDERED: Sodium Chloride 0.9% 10 ML Syringe FLUSH PRN (14:33)
[2022-07-17] MEDS ORDERED: Potassium Chloride 20 MEQ Tab.ER PO STA (17:22)
== END 2022-07-17 17:35 | disposition home or self-care (01) ==
LOC: FB.ED 13:04
DX: E87.6 Hypokalemia (principal); F43.20 Adjustment disorder, unspecified; I10 Essential (primary) hypertension; Z88.8 Allergy status to other drugs, medicaments and biological substances; Z91.041 Radiographic dye allergy status; Z79.899 Other long term (current) drug therapy
CPT/HCPCS: 36415; 74176; 80053; 80143; 80179; 80307; 81001; 82150; 83690; 84439; 84443; 85025; 99284; A9270-GY; J3490

== ENCOUNTER 2022-08-13 18:31 | Emergency (ER) | payer MEDICARE, BC ==
[2022-08-13 19:15] LABS: ESTIMATED GFR 94 mL/min (>60)
== END 2022-08-13 20:50 | disposition home or self-care (01) ==
LOC: FB.ED 18:31
DX: M54.50 Low back pain, unspecified (principal); R44.1 Visual hallucinations; I10 Essential (primary) hypertension; Z88.8 Allergy status to other drugs, medicaments and biological substances; Z91.041 Radiographic dye allergy status; Z79.899 Other long term (current) drug therapy
CPT/HCPCS: 36415; 80053; 80307; 81001; 83605; 85025; 86140; 87086; 99283; 99284

== ENCOUNTER 2022-08-15 14:32 | Emergency (ER) | payer MEDICARE, BC ==
[2022-08-15 15:29] LABS: ESTIMATED GFR 77 mL/min (>60)
== END 2022-08-15 19:22 | disposition home or self-care (01) ==
LOC: FB.ED 14:32
DX: F41.1 Generalized anxiety disorder (principal); F32.A Depression, unspecified; R44.1 Visual hallucinations; I10 Essential (primary) hypertension; Z79.899 Other long term (current) drug therapy; Z88.8 Allergy status to other drugs, medicaments and biological substances; Z91.041 Radiographic dye allergy status
CPT/HCPCS: 36415; 80053; 80307; 81001; 84439; 84443; 85025; 99284; A9270-GY

== ENCOUNTER 2022-08-30 17:23 | Emergency (ER) | payer MEDICARE, BC ==
[2022-08-30] MEDS: Sodium Chloride 0.9% 10 ML Syringe FLUSH PRN (18:17)
[2022-08-30] MEDS: Sodium Chloride 0.9% 1,000 ML IV SCH (18:21)
[2022-08-30] MEDS: Ketorolac 30 MG/ML SDV IVPUSH ONE (18:23)
[2022-08-30] MEDS: Prochlorperazine 10 MG/2 ML SDV IVPUSH ONE (18:24)
[2022-08-30 18:30] LABS: ESTIMATED GFR 90 mL/min (>60)
[2022-08-30 19:33] LABS: CORONAVIRUS COVID-19 NAA NEGATIVE (NEGATIVE)
== END 2022-08-30 20:20 | disposition home or self-care (01) ==
LOC: FB.ED 17:23
DX: E86.0 Dehydration (principal); E80.6 Other disorders of bilirubin metabolism; R74.01 Elevation of levels of liver transaminase levels; I10 Essential (primary) hypertension; F41.9 Anxiety disorder, unspecified; F32.A Depression, unspecified; Z20.822 Contact with and (suspected) exposure to COVID-19; Z88.6 Allergy status to analgesic agent; Z88.8 Allergy status to other drugs, medicaments and biological substances; Z91.041 Radiographic dye allergy status; Z79.899 Other long term (current) drug therapy
CPT/HCPCS: 0241U; 36415; 71045; 74176; 80053; 81001; 82150; 83690; 85025; 85610; 85730; 96361; 96374; 96375; 99283; 99284-25; J0780; J1885; J3490; J7030

== ENCOUNTER 2022-09-23 16:40 | Emergency (ER) | payer MEDICARE, BC ==
[2022-09-23 17:54] LABS: ESTIMATED GFR 77 mL/min (>60)
[2022-09-23 17:59] LABS: ACETAMINOPHEN 20 ug/mL (<2)
== END 2022-09-23 18:45 ==
LOC: FB.ED 16:40
DX: G92.9 Unspecified toxic encephalopathy (principal); R74.8 Abnormal levels of other serum enzymes; I10 Essential (primary) hypertension; Z88.6 Allergy status to analgesic agent; Z91.041 Radiographic dye allergy status; Z88.8 Allergy status to other drugs, medicaments and biological substances; Z79.899 Other long term (current) drug therapy
CPT/HCPCS: 36415; 80053; 80143; 80179; 80307; 81001; 85025; 99285

== ENCOUNTER 2022-12-03 11:35 | Emergency (ER) | payer MEDICARE, BC ==
[2022-12-03] MEDS ORDERED: Sodium Chloride 0.9% 10 ML Syringe FLUSH PRN (11:49)
[2022-12-03] MEDS ORDERED: Labetalol 20 MG/4 ML Syringe IVPUSH ONE ×2 (11:51→12:01)
[2022-12-03 12:03] LABS: BASOPHILS PERCENT AUTO 0.9 % (0.2-1.5); EOSINOPHILS ABSOLUTE AUTO 0.1 x10-3/uL (0.0-0.8); EOSINOPHILS PERCENT AUTO 2.8 % (0.6-8.1); HEMOGLOBIN 13.5 g/dL (11.4-15.5); LYMPHOCYTES ABSOLUTE AUTO 1.9 x10-3/uL (1.0-4.4); LYMPHOCYTES PERCENT AUTO 34.9 % (18.4-52.1); MEAN CORPUSCULAR VOLUME 87.7 fL (76.7-100.5); MEAN PLATELET VOLUME 6.7 fL (7.1-12.4); MONOCYTES ABSOLUTE AUTO 0.4 x10-3/uL (0.3-1.0); MONOCYTES PERCENT AUTO 6.6 % (4.4-15.7); NEUTROPHILS ABSOLUTE AUTO 2.9 x10-3/uL (1.5-6.3); NEUTROPHILS PERCENT AUTO 54.8 % (30.8-76.2); PLATELET COUNT,PLT 330 x10(3)uL (151-488); RED BLOOD CELL COUNT 4.67 x10(6)uL (3.60-5.20); WHITE BLOOD CELL COUNT,WBC 5.3 x10-3/uL (3.0-10.3)
[2022-12-03 12:10] LABS: BLOOD UREA NITROGEN,BUN 14 mg/dL (7-18); BUN/CREATININE RATIO 17.5 (9-20); CALCIUM 8.9 mg/dL (8.6-10.2); CARBON DIOXIDE,CO2 28 mmol/L (21-32); CHLORIDE,CL 101 mmol/L (100-110); CREATININE 0.8 mg/dL (0.55-1.02); ESTIMATED GFR 76 mL/min (>60); GLUCOSE RANDOM 139 mg/dL (80-116); POTASSIUM,K 3.9 mmol/L (3.5-5.3); SODIUM,NA 137 mmol/L (135-145)
[2022-12-03 12:17] LABS: A/G RATIO 1.1; ALANINE AMINOTRANSFERASE,ALT 24 U/L (12-36); ALBUMIN 3.7 g/dL (3.2-4.6); ALKALINE PHOSPHATASE 60 IU/L (56-112); ASPARTATE AMNIOTRANSFERASE,AST 22 IU/L (5-25); BILIRUBIN TOTAL 0.2 mg/dL (0.1-1.3); PROTEIN TOTAL,TP 7.2 g/dL (6.0-8.0)
[2022-12-03 12:23] LABS: TROPONIN I 8.8 pg/mL (4.0-60.3)
== END 2022-12-03 13:10 | disposition home or self-care (01) ==
LOC: FB.ED 11:35
DX: R05.3 Chronic cough (principal); K21.9 Gastro-esophageal reflux disease without esophagitis; I10 Essential (primary) hypertension; Z79.899 Other long term (current) drug therapy
CPT/HCPCS: 36415; 71045; 80053; 83880; 84484; 85025; 93005; 96374; 99284; J3490

== ENCOUNTER 2022-12-15 09:38 | Emergency (ER) | payer MEDICARE, BC | END 2022-12-15 10:42 | disposition home or self-care (01) | LOC: FB.ED 09:38 | DX: K59.01 Slow transit constipation (principal); F41.9 Anxiety disorder, unspecified; I10 Essential (primary) hypertension; Z88.8 Allergy status to other drugs, medicaments and biological substances; Z91.041 Radiographic dye allergy status | CPT/HCPCS: 82272; 99283 ==

== ENCOUNTER 2023-09-13 21:05 | Emergency (ER) | payer MEDICARE, BC ==
[2023-09-13] MEDS ORDERED: Sodium Chloride 0.9% 10 ML Syringe FLUSH PRN (21:21)
[2023-09-13] MEDS: Sodium Chloride 0.9% 1,000 ML IV SCH (21:39)
[2023-09-13 21:40] LABS: BASOPHILS PERCENT AUTO 0.4 % (0.2-1.5); EOSINOPHILS PERCENT AUTO 0.5 % (0.6-8.1); HEMATOCRIT 42.2 % (34.2-48.2); HEMOGLOBIN 14.3 g/dL (11.4-15.5); LYMPHOCYTES ABSOLUTE AUTO 2.5 x10-3/uL (1.0-4.4); LYMPHOCYTES PERCENT AUTO 31.6 % (18.4-52.1); MEAN CORPUSCULAR HGB CONC 33.9 g/dL (31.9-34.8); MEAN CORPUSCULAR VOLUME 88.5 fL (76.7-100.5); MEAN PLATELET VOLUME 7.2 fL (7.1-12.4); MONOCYTES ABSOLUTE AUTO 0.6 x10-3/uL (0.3-1.0); MONOCYTES PERCENT AUTO 8.1 % (4.4-15.7); NEUTROPHILS ABSOLUTE AUTO 4.7 x10-3/uL (1.5-6.3); NEUTROPHILS PERCENT AUTO 59.4 % (30.8-76.2); PLATELET COUNT,PLT 312 x10(3)uL (151-488); RED BLOOD CELL COUNT 4.76 x10(6)uL (3.60-5.20); RED CELL DISTRIBUTION WIDTH 15.5 % (12.3-16.5); WHITE BLOOD CELL COUNT,WBC 7.9 x10-3/uL (3.0-10.3)
[2023-09-13] MEDS: Ondansetron 4 MG/2 ML SDV IVPUSH ONE (21:40)
[2023-09-13] MEDS: Morphine 4 MG/ML VIAL IVPUSH ONE (21:40)
[2023-09-13 21:41] LABS: BLOOD UREA NITROGEN,BUN 22 mg/dL (7-18); BUN/CREATININE RATIO 31.4 (9-20); CALCIUM 9.4 mg/dL (8.6-10.2); CARBON DIOXIDE,CO2 25 mmol/L (21-32); CHLORIDE,CL 100 mmol/L (100-110); CREATININE 0.7 mg/dL (0.55-1.02); ESTIMATED GFR 90 mL/min (>60); GLUCOSE RANDOM 169 mg/dL (80-116); POTASSIUM,K 3.6 mmol/L (3.5-5.3); SODIUM,NA 136 mmol/L (135-145)
[2023-09-13 21:52] LABS: A/G RATIO 0.8; ALBUMIN 3.3 g/dL (3.2-4.6); ALKALINE PHOSPHATASE 200 IU/L (56-112); BILIRUBIN TOTAL 1.5 mg/dL (0.1-1.3); PROTEIN TOTAL,TP 7.5 g/dL (6.0-8.0)
[2023-09-13 21:54] LABS: ALANINE AMINOTRANSFERASE,ALT 268 U/L (12-36); ASPARTATE AMNIOTRANSFERASE,AST 405 IU/L (5-25)
== END 2023-09-13 22:56 | disposition home or self-care (01) ==
LOC: FB.ED 21:05
DX: R10.84 Generalized abdominal pain (principal); I10 Essential (primary) hypertension; Z91.041 Radiographic dye allergy status; Z88.8 Allergy status to other drugs, medicaments and biological substances; Z79.899 Other long term (current) drug therapy
CPT/HCPCS: 36415; 74176; 80053; 83690; 85025; 96361; 96374; 96375; 99284; 99284-25; J2270; J2405; J7030

== ENCOUNTER 2023-09-14 04:22 | Emergency (ER) | payer MEDICARE, BC ==
[2023-09-14 04:40] LABS: BLOOD UREA NITROGEN,BUN 19 mg/dL (7-18); BUN/CREATININE RATIO 23.8 (9-20); CARBON DIOXIDE,CO2 24 mmol/L (21-32); CHLORIDE,CL 100 mmol/L (100-110); CREATININE 0.8 mg/dL (0.55-1.02); ESTIMATED GFR 76 mL/min (>60); GLUCOSE RANDOM 184 mg/dL (80-116); POTASSIUM,K 3.9 mmol/L (3.5-5.3); SODIUM,NA 136 mmol/L (135-145)
[2023-09-14] MEDS: HYDROmorphone 2 MG/ML SDV IVPUSH ONE ×2 (04:44→09:17)
[2023-09-14] MEDS: Sodium Chloride 0.9% 1,000 ML IV SCH ×2 (04:45→10:30)
[2023-09-14] MEDS: Ondansetron 4 MG/2 ML SDV IVPUSH ONE (04:45)
[2023-09-14 04:51] LABS: A/G RATIO 0.7; ALBUMIN 3.1 g/dL (3.2-4.6); ALKALINE PHOSPHATASE 238 IU/L (56-112); BILIRUBIN TOTAL 2.7 mg/dL (0.1-1.3); PROTEIN TOTAL,TP 7.3 g/dL (6.0-8.0)
[2023-09-14 04:52] LABS: ALANINE AMINOTRANSFERASE,ALT 618 U/L (12-36); ASPARTATE AMNIOTRANSFERASE,AST 637 IU/L (5-25)
[2023-09-14 06:59] LABS: HEMOGLOBIN 13.3 g/dL (11.4-15.5); PLATELET COUNT,PLT 253 x10(3)uL (151-488); RED BLOOD CELL COUNT 4.46 x10(6)uL (3.60-5.20)
[2023-09-14 07:00] LABS: HEMATOCRIT 39.8 % (34.2-48.2); MEAN CORPUSCULAR HEMOGLOBIN 29.8 pg (23.9-33.9); MEAN CORPUSCULAR HGB CONC 33.4 g/dL (31.9-34.8); MEAN CORPUSCULAR VOLUME 89.2 fL (76.7-100.5); RED CELL DISTRIBUTION WIDTH 15.2 % (12.3-16.5); WHITE BLOOD CELL COUNT,WBC 5.7 x10-3/uL (3.0-10.3)
[2023-09-14 07:05] LABS: C-REACTIVE PROTEIN 2.25 mg/dL (<0.50)
[2023-09-14 07:12] LABS: BAND PERCENT MAN 1 % (0-6); LYMPHOCYTES PERCENT MAN 4 % (13-37); MONOCYTES PERCENT MAN 1 % (4-12); SEG NEUTROPHILS PERCENT MAN 94 % (46-82)
[2023-09-14 07:15] LABS: ETHANOL BLOOD MEDICAL < 0.03 % (<0.03)
[2023-09-14] MEDS: Sodium Chloride 0.9% 500 ML IV ONE (09:12)
[2023-09-14] MEDS ORDERED: Naloxone 0.4 MG/ML SDV IVPUSH PRN (09:13)
[2023-09-14] MEDS: Piperacillin/Tazobactam 3.375 GM in Sodium Chloride 0.9% 50 ML IV ONE (09:45)
== END 2023-09-14 11:11 | disposition still patient (30) ==
LOC: FB.ED 04:22
DX: F41.1 Generalized anxiety disorder (principal); R74.8 Abnormal levels of other serum enzymes; I10 Essential (primary) hypertension; Z79.899 Other long term (current) drug therapy; Z79.82 Long term (current) use of aspirin; Z91.041 Radiographic dye allergy status; Z88.8 Allergy status to other drugs, medicaments and biological substances
CPT/HCPCS: 36415; 80053; 80143; 80307; 83605; 83690; 85025; 86140; 87040; 96361; 96365; 96375; 96376; 99284; 99285-25; J1170; J2405; J2543; J3490; J7030; J7040

== ENCOUNTER 2023-09-27 16:42 | Emergency (ER) | payer MEDICARE, BC | END 2023-09-27 18:52 | disposition home or self-care (01) | LOC: FB.ED 16:42 | DX: K60.2 Anal fissure, unspecified (principal); K59.00 Constipation, unspecified; I10 Essential (primary) hypertension; Z79.899 Other long term (current) drug therapy; Z91.041 Radiographic dye allergy status; Z88.6 Allergy status to analgesic agent | CPT/HCPCS: 99283 ==

== ENCOUNTER 2023-11-07 07:10 | Emergency (ER) | payer MEDICARE, BC ==
[2023-11-07] MEDS ORDERED: Naloxone 0.4 MG/ML SDV IVPUSH PRN (07:47)
[2023-11-07 07:50] LABS: HEMATOCRIT 41.2 % (34.2-48.2); HEMOGLOBIN 13.3 g/dL (11.4-15.5); MEAN CORPUSCULAR HEMOGLOBIN 29.2 pg (23.9-33.9); MEAN CORPUSCULAR HGB CONC 32.4 g/dL (31.9-34.8); RED BLOOD CELL COUNT 4.57 x10(6)uL (3.60-5.20); RED CELL DISTRIBUTION WIDTH 16.8 % (12.3-16.5); WHITE BLOOD CELL COUNT,WBC 5.6 x10-3/uL (3.0-10.3)
[2023-11-07 07:55] LABS: BLOOD UREA NITROGEN,BUN 20 mg/dL (7-18); BUN/CREATININE RATIO 33.3 (9-20); CALCIUM 8.7 mg/dL (8.6-10.2); CARBON DIOXIDE,CO2 27 mmol/L (21-32); CHLORIDE,CL 106 mmol/L (100-110); CREATININE 0.6 mg/dL (0.55-1.02); EST CRCL DRUG DOSING (CG) 76.36 mL/min; ESTIMATED GFR 92 mL/min (>60); GLUCOSE RANDOM 110 mg/dL (80-116); SODIUM,NA 139 mmol/L (135-145)
[2023-11-07] MEDS: Sodium Chloride 0.9% 1,000 ML IV SCH (07:56)
[2023-11-07] MEDS: Ondansetron 4 MG/2 ML SDV IVPUSH ONE (07:57)
[2023-11-07] MEDS: Morphine 2 MG/ML SYRINGE IVPUSH ONE (07:58)
[2023-11-07 08:00] LABS: A/G RATIO 0.9; ALANINE AMINOTRANSFERASE,ALT 28 U/L (12-36); ALBUMIN 3.3 g/dL (3.2-4.6); ALKALINE PHOSPHATASE 60 IU/L (56-112); ASPARTATE AMNIOTRANSFERASE,AST 19 IU/L (5-25); BILIRUBIN TOTAL 0.3 mg/dL (0.1-1.3); PROTEIN TOTAL,TP 6.8 g/dL (6.0-8.0)
[2023-11-07 08:54] LABS: BILIRUBIN,URINE NEGATIVE (NEGATIVE); GLUCOSE,URINE NORMAL (NORMAL); KETONES,URINE NEGATIVE (NEGATIVE); LEUKOCYTE ESTERASE,URINE MODERATE (NEGATIVE); NITRITE,URINE NEGATIVE (NEGATIVE); OCCULT BLOOD,URINE NEGATIVE (NEGATIVE); PROTEIN,URINE NEGATIVE (NEGATIVE); UROBILINOGEN,URINE NORMAL (NEGATIVE)
[2023-11-07 09:04] LABS: COLOR,URINE YELLOW (YELLOW)
[2023-11-07 09:05] LABS: APPEARANCE,URINE CLEAR (CLEAR); BACTERIA,URINE RARE (NS); MUCUS,URINE FEW (NS); RBC,URINE 0-5 (0-5); SQUAMOUS EPITHELIAL CELLS,UR FEW (NS,R,O); WBC,URINE 0-5 (0-5)
== END 2023-11-07 10:24 | disposition home or self-care (01) ==
LOC: FB.ED 07:10
DX: R10.84 Generalized abdominal pain (principal); I10 Essential (primary) hypertension; Z88.6 Allergy status to analgesic agent; Z88.8 Allergy status to other drugs, medicaments and biological substances; Z91.041 Radiographic dye allergy status; Z79.899 Other long term (current) drug therapy
CPT/HCPCS: 36415; 74176; 80053; 81001; 83690; 85027; 96361; 96374; 96375; 99284-25; J2270; J2405; J7030

== ENCOUNTER 2024-01-16 22:23 | Emergency (ER) | payer MEDICARE, BC ==
[2024-01-16] MEDS ORDERED: Sodium Chloride 0.9% 10 ML Syringe FLUSH PRN (22:57)
[2024-01-16] MEDS ORDERED: Naloxone 0.4 MG/ML SDV IVPUSH PRN (22:58)
[2024-01-16] MEDS: Morphine 4 MG/ML VIAL IVPUSH ONE (23:09)
[2024-01-16] MEDS: Prochlorperazine 10 MG/2 ML SDV IVPUSH ONE (23:09)
[2024-01-16] MEDS: Sodium Chloride 0.9% 1,000 ML IV SCH (23:10)
[2024-01-16 23:29] LABS: BASOPHILS ABSOLUTE AUTO 0.1 x10-3/uL (0.0-0.1); BASOPHILS PERCENT AUTO 0.9 % (0.2-1.5); EOSINOPHILS ABSOLUTE AUTO 0.1 x10-3/uL (0.0-0.8); EOSINOPHILS PERCENT AUTO 1.8 % (0.6-8.1); HEMATOCRIT 40.6 % (34.2-48.2); HEMOGLOBIN 13.6 g/dL (11.4-15.5); LYMPHOCYTES ABSOLUTE AUTO 1.4 x10-3/uL (1.0-4.4); LYMPHOCYTES PERCENT AUTO 22.2 % (18.4-52.1); MEAN CORPUSCULAR HEMOGLOBIN 30.4 pg (23.9-33.9); MEAN CORPUSCULAR HGB CONC 33.5 g/dL (31.9-34.8); MEAN CORPUSCULAR VOLUME 90.6 fL (76.7-100.5); MEAN PLATELET VOLUME 7.2 fL (7.1-12.4); MONOCYTES ABSOLUTE AUTO 0.7 x10-3/uL (0.3-1.0); MONOCYTES PERCENT AUTO 10.5 % (4.4-15.7); NEUTROPHILS PERCENT AUTO 64.6 % (30.8-76.2); PLATELET COUNT,PLT 277 x10(3)uL (151-488); RED BLOOD CELL COUNT 4.48 x10(6)uL (3.60-5.20); RED CELL DISTRIBUTION WIDTH 16.7 % (12.3-16.5); WHITE BLOOD CELL COUNT,WBC 6.2 x10-3/uL (3.0-10.3)
[2024-01-16 23:34] LABS: BLOOD UREA NITROGEN,BUN 15 mg/dL (7-18); BUN/CREATININE RATIO 21.4 (9-20); CALCIUM 9.1 mg/dL (8.6-10.2); CARBON DIOXIDE,CO2 25 mmol/L (21-32); CHLORIDE,CL 105 mmol/L (100-110); CREATININE 0.7 mg/dL (0.55-1.02); EST CRCL DRUG DOSING (CG) 65.45 mL/min; ESTIMATED GFR 89 mL/min (>60); GLUCOSE RANDOM 110 mg/dL (80-116); POTASSIUM,K 4.1 mmol/L (3.5-5.3); SODIUM,NA 138 mmol/L (135-145)
[2024-01-16 23:40] LABS: A/G RATIO 0.9; ALANINE AMINOTRANSFERASE,ALT 28 U/L (12-36); ALBUMIN 3.3 g/dL (3.2-4.6); ALKALINE PHOSPHATASE 58 IU/L (56-112); AMYLASE 29 U/L (25-115); ASPARTATE AMNIOTRANSFERASE,AST 31 IU/L (5-25); BILIRUBIN TOTAL 0.6 mg/dL (0.1-1.3)
[2024-01-16 23:43] LABS: APPEARANCE,URINE SLIGHTLY CLOUDY (CLEAR); BILIRUBIN,URINE NEGATIVE (NEGATIVE); COLOR,URINE YELLOW (YELLOW); GLUCOSE,URINE NORMAL (NORMAL); KETONES,URINE NEGATIVE (NEGATIVE); LEUKOCYTE ESTERASE,URINE NEGATIVE (NEGATIVE); NITRITE,URINE NEGATIVE (NEGATIVE); OCCULT BLOOD,URINE NEGATIVE (NEGATIVE); PROTEIN,URINE 30 mg/dL (NEGATIVE); UROBILINOGEN,URINE NORMAL (NEGATIVE)
[2024-01-17 05:50] LABS: BACTERIA,URINE OCCASIONAL (NS); EPITHELIAL CELLS,URINE OCCASIONAL; RBC,URINE NOT SEEN (0-5); WBC,URINE 0-5 (0-5)
== END 2024-01-17 01:05 | disposition home or self-care (01) ==
LOC: FB.ED 22:23
DX: K52.9 Noninfective gastroenteritis and colitis, unspecified (principal); E86.0 Dehydration; I10 Essential (primary) hypertension; E66.9 Obesity, unspecified; Z79.899 Other long term (current) drug therapy; Z68.31 Body mass index [BMI] 31.0-31.9, adult; Z88.6 Allergy status to analgesic agent; Z91.041 Radiographic dye allergy status; Z88.8 Allergy status to other drugs, medicaments and biological substances
CPT/HCPCS: 36415; 74176; 80053; 81001; 82150; 83690; 85025; 96361; 96374; 99283; 99284; J0780; J2270; J7030

== ENCOUNTER 2024-01-26 13:57 | Emergency (ER) | payer MEDICARE, BC ==
[2024-01-26] MEDS ORDERED: Pantoprazole 40 MG Tab.CR PO ONE (13:58)
[2024-01-26] MEDS ORDERED: traMADol 50 MG Tab PO ONE (13:58)
[2024-01-26] MEDS ORDERED: Sodium Chloride 0.9% 10 ML Syringe FLUSH PRN (14:31)
[2024-01-26] MEDS: Sodium Chloride 0.9% 1,000 ML IV SCH (14:42)
[2024-01-26 14:50] LABS: BASOPHILS ABSOLUTE AUTO 0.1 x10-3/uL (0.0-0.1); BASOPHILS PERCENT AUTO 0.9 % (0.2-1.5); EOSINOPHILS ABSOLUTE AUTO 0.1 x10-3/uL (0.0-0.8); EOSINOPHILS PERCENT AUTO 1.2 % (0.6-8.1); HEMOGLOBIN 13.5 g/dL (11.4-15.5); LYMPHOCYTES ABSOLUTE AUTO 1.9 x10-3/uL (1.0-4.4); LYMPHOCYTES PERCENT AUTO 29.9 % (18.4-52.1); MEAN CORPUSCULAR HEMOGLOBIN 30.8 pg (23.9-33.9); MEAN CORPUSCULAR HGB CONC 33.7 g/dL (31.9-34.8); MEAN CORPUSCULAR VOLUME 91.4 fL (76.7-100.5); MEAN PLATELET VOLUME 7.9 fL (7.1-12.4); MONOCYTES ABSOLUTE AUTO 0.8 x10-3/uL (0.3-1.0); MONOCYTES PERCENT AUTO 11.7 % (4.4-15.7); NEUTROPHILS ABSOLUTE AUTO 3.7 x10-3/uL (1.5-6.3); NEUTROPHILS PERCENT AUTO 56.3 % (30.8-76.2); PLATELET COUNT,PLT 217 x10(3)uL (151-488); RED CELL DISTRIBUTION WIDTH 17.7 % (12.3-16.5); WHITE BLOOD CELL COUNT,WBC 7.2 x10-3/uL (3.0-10.3)
[2024-01-26 14:55] LABS: BLOOD UREA NITROGEN,BUN 15 mg/dL (7-18); BUN/CREATININE RATIO 21.4 (9-20); CARBON DIOXIDE,CO2 26 mmol/L (21-32); CHLORIDE,CL 101 mmol/L (100-110); CREATININE 0.7 mg/dL (0.55-1.02); EST CRCL DRUG DOSING (CG) 65.45 mL/min; ESTIMATED GFR 89 mL/min (>60); GLUCOSE RANDOM 130 mg/dL (80-116); POTASSIUM,K 3.3 mmol/L (3.5-5.3); SODIUM,NA 135 mmol/L (135-145)
[2024-01-26 14:58] LABS: RED BLOOD CELL COUNT 4.38 x10(6)uL (3.60-5.20)
[2024-01-26] MEDS: hydrOXYzine HCl 50 MG/ML SDV IM ONE (15:07)
[2024-01-26 15:48] LABS: BILIRUBIN,URINE NEGATIVE (NEGATIVE); GLUCOSE,URINE NORMAL (NORMAL); KETONES,URINE 15 mg/dL (NEGATIVE); LEUKOCYTE ESTERASE,URINE NEGATIVE (NEGATIVE); NITRITE,URINE NEGATIVE (NEGATIVE); OCCULT BLOOD,URINE NEGATIVE (NEGATIVE); PROTEIN,URINE TRACE mg/dL (NEGATIVE); UROBILINOGEN,URINE NORMAL (NEGATIVE)
[2024-01-26] MEDS: Sodium Chloride 0.9% 1,000 ML IV ONE (15:49)
[2024-01-26 15:52] LABS: APPEARANCE,URINE CLEAR (CLEAR); COLOR,URINE YELLOW (YELLOW); SQUAMOUS EPITHELIAL CELLS,UR FEW (NS,R,O); WBC,URINE 0-5 (0-5)
[2024-01-26 15:53] LABS: AMPHETAMINES SCREEN, URINE NEGATIVE (NEGATIVE); BACTERIA,URINE FEW (NS); BARBITURATE SCREEN,URINE NEGATIVE (NEGATIVE); BENZODIAZEPINES SCREEN,URINE NEGATIVE (NEGATIVE); METHADONE SCREEN, URINE NEGATIVE (NEGATIVE); METHAMPHETAMINE SCREEN, URINE NEGATIVE (NEGATIVE); OXYCODONE SCREEN,URINE NEGATIVE (NEGATIVE); THC SCREEN,URINE NEGATIVE (NEGATIVE)
[2024-01-26 15:54] LABS: BUPRENORPHINE SCREEN,URINE NEGATIVE (NEGATIVE)
[2024-01-26] MEDS: traMADol 50 MG Tab PO ONE (16:19)
[2024-01-26] MEDS: Pantoprazole 40 MG Vial IVPUSH ONE (16:28)
== END 2024-01-26 17:45 | disposition home or self-care (01) ==
LOC: FB.ED 13:57
DX: R11.2 Nausea with vomiting, unspecified (principal); R10.30 Lower abdominal pain, unspecified; I10 Essential (primary) hypertension; E66.9 Obesity, unspecified; Z68.28 Body mass index [BMI] 28.0-28.9, adult; Z79.899 Other long term (current) drug therapy; Z88.6 Allergy status to analgesic agent; Z88.8 Allergy status to other drugs, medicaments and biological substances; Z91.041 Radiographic dye allergy status
CPT/HCPCS: 80048; 80307; 81001; 82272; 85025; 86140; 96361; 96372; 96374; 99284; A9270; J2470; J3410; J7030

== ENCOUNTER 2024-01-29 19:46 | Emergency (ER) | payer MEDICARE, BC ==
[2024-01-29] MEDS ORDERED: ALPRAZolam 0.5 MG Tab PO ONE (19:47)
[2024-01-29 20:53] LABS: BASOPHILS PERCENT AUTO 0.8 % (0.2-1.5); EOSINOPHILS ABSOLUTE AUTO 0.1 x10-3/uL (0.0-0.8); EOSINOPHILS PERCENT AUTO 1.9 % (0.6-8.1); HEMATOCRIT 39.6 % (34.2-48.2); LYMPHOCYTES ABSOLUTE AUTO 1.5 x10-3/uL (1.0-4.4); LYMPHOCYTES PERCENT AUTO 30.9 % (18.4-52.1); MEAN CORPUSCULAR HEMOGLOBIN 30.3 pg (23.9-33.9); MEAN CORPUSCULAR HGB CONC 32.9 g/dL (31.9-34.8); MEAN CORPUSCULAR VOLUME 92.1 fL (76.7-100.5); MEAN PLATELET VOLUME 6.8 fL (7.1-12.4); MONOCYTES ABSOLUTE AUTO 0.6 x10-3/uL (0.3-1.0); MONOCYTES PERCENT AUTO 12.8 % (4.4-15.7); NEUTROPHILS ABSOLUTE AUTO 2.6 x10-3/uL (1.5-6.3); NEUTROPHILS PERCENT AUTO 53.6 % (30.8-76.2); PLATELET COUNT,PLT 361 x10(3)uL (151-488); RED CELL DISTRIBUTION WIDTH 17.9 % (12.3-16.5); WHITE BLOOD CELL COUNT,WBC 4.8 x10-3/uL (3.0-10.3)
[2024-01-29 20:57] LABS: BLOOD UREA NITROGEN,BUN 7 mg/dL (7-18); BUN/CREATININE RATIO 8.8 (9-20); CALCIUM 8.6 mg/dL (8.6-10.2); CARBON DIOXIDE,CO2 29 mmol/L (21-32); CHLORIDE,CL 103 mmol/L (100-110); CREATININE 0.8 mg/dL (0.55-1.02); EST CRCL DRUG DOSING (CG) 57.27 mL/min; ESTIMATED GFR 76 mL/min (>60); GLUCOSE RANDOM 126 mg/dL (80-116); POTASSIUM,K 2.9 mmol/L (3.5-5.3); SODIUM,NA 140 mmol/L (135-145)
[2024-01-29 20:59] LABS: LIPASE 21 U/L (16-77)
[2024-01-29 21:08] LABS: C-REACTIVE PROTEIN < 0.50 mg/dL (<0.50)
[2024-01-29] MEDS: HYDROmorphone 2 MG/ML SDV IM ONE (21:10)
[2024-01-29] MEDS: hydrOXYzine HCl 50 MG/ML SDV IM ONE (21:10)
[2024-01-29 21:26] LABS: APPEARANCE,URINE CLEAR (CLEAR); BILIRUBIN,URINE SMALL (NEGATIVE); COLOR,URINE YELLOW (YELLOW); GLUCOSE,URINE NORMAL (NORMAL); KETONES,URINE NEGATIVE (NEGATIVE); LEUKOCYTE ESTERASE,URINE NEGATIVE (NEGATIVE); NITRITE,URINE NEGATIVE (NEGATIVE); OCCULT BLOOD,URINE NEGATIVE (NEGATIVE); PROTEIN,URINE TRACE mg/dL (NEGATIVE); UROBILINOGEN,URINE NORMAL (NEGATIVE)
[2024-01-29 21:27] LABS: BACTERIA,URINE FEW (NS); RBC,URINE NOT SEEN (0-5); SQUAMOUS EPITHELIAL CELLS,UR FEW (NS,R,O); WBC,URINE 0-5 (0-5)
[2024-01-29] MEDS: Potassium Chloride 20 MEQ Tab.ER PO ONE (22:16)
== END 2024-01-29 22:21 | disposition home or self-care (01) ==
LOC: FB.ED 19:46
DX: K58.0 Irritable bowel syndrome with diarrhea (principal); K29.90 Gastroduodenitis, unspecified, without bleeding; F41.1 Generalized anxiety disorder; I10 Essential (primary) hypertension; E66.9 Obesity, unspecified; Z79.899 Other long term (current) drug therapy; Z88.6 Allergy status to analgesic agent; Z88.8 Allergy status to other drugs, medicaments and biological substances; Z91.041 Radiographic dye allergy status; Z68.31 Body mass index [BMI] 31.0-31.9, adult
CPT/HCPCS: 36415; 80048; 81001; 83690; 85025; 86140; 96372; 99284; A9270; J1170; J3410

== ENCOUNTER 2024-01-30 18:02 | Emergency (ER) | payer MEDICARE, BC | END 2024-01-30 18:03 | disposition left against medical advice (07) | LOC: FB.ED 18:02 | DX: Z53.21 Procedure and treatment not carried out due to patient leaving prior to being seen by health care provider (principal) ==

== ENCOUNTER 2024-02-01 12:51 | Emergency (ER) | payer MEDICARE, BC ==
[2024-02-01] MEDS ORDERED: ALPRAZolam 0.5 MG Tab PO ONE (12:52)
[2024-02-01] MEDS: Nitroglycerin 0.4 MG Tab.SL SL PRN (13:15)
[2024-02-01 13:23] LABS: BASOPHILS ABSOLUTE AUTO 0.1 x10-3/uL (0.0-0.1); BASOPHILS PERCENT AUTO 1.2 % (0.2-1.5); EOSINOPHILS ABSOLUTE AUTO 0.1 x10-3/uL (0.0-0.8); EOSINOPHILS PERCENT AUTO 2.4 % (0.6-8.1); HEMOGLOBIN 13.8 g/dL (11.4-15.5); LYMPHOCYTES ABSOLUTE AUTO 1.9 x10-3/uL (1.0-4.4); LYMPHOCYTES PERCENT AUTO 38.3 % (18.4-52.1); MEAN CORPUSCULAR HEMOGLOBIN 30.3 pg (23.9-33.9); MEAN CORPUSCULAR HGB CONC 32.8 g/dL (31.9-34.8); MEAN CORPUSCULAR VOLUME 92.6 fL (76.7-100.5); MEAN PLATELET VOLUME 7.4 fL (7.1-12.4); MONOCYTES ABSOLUTE AUTO 0.6 x10-3/uL (0.3-1.0); MONOCYTES PERCENT AUTO 11.3 % (4.4-15.7); NEUTROPHILS ABSOLUTE AUTO 2.4 x10-3/uL (1.5-6.3); NEUTROPHILS PERCENT AUTO 46.8 % (30.8-76.2); PLATELET COUNT,PLT 399 x10(3)uL (151-488); RED BLOOD CELL COUNT 4.53 x10(6)uL (3.60-5.20); RED CELL DISTRIBUTION WIDTH 18.2 % (12.3-16.5)
[2024-02-01 13:26] LABS: BLOOD UREA NITROGEN,BUN 11 mg/dL (7-18); BUN/CREATININE RATIO 15.7 (9-20); CALCIUM 8.7 mg/dL (8.6-10.2); CARBON DIOXIDE,CO2 28 mmol/L (21-32); CHLORIDE,CL 102 mmol/L (100-110); CREATININE 0.7 mg/dL (0.55-1.02); EST CRCL DRUG DOSING (CG) 65.45 mL/min; ESTIMATED GFR 89 mL/min (>60); GLUCOSE RANDOM 127 mg/dL (80-116); LIPASE 26 U/L (16-77); POTASSIUM,K 3.3 mmol/L (3.5-5.3); SODIUM,NA 141 mmol/L (135-145)
[2024-02-01 13:32] LABS: A/G RATIO 0.9; ALANINE AMINOTRANSFERASE,ALT 17 U/L (12-36); ALBUMIN 3.4 g/dL (3.2-4.6); ALKALINE PHOSPHATASE 52 IU/L (56-112); ASPARTATE AMNIOTRANSFERASE,AST 20 IU/L (5-25); BILIRUBIN TOTAL 0.6 mg/dL (0.1-1.3); PROTEIN TOTAL,TP 7.2 g/dL (6.0-8.0)
[2024-02-01 13:36] LABS: C-REACTIVE PROTEIN < 0.50 mg/dL (<0.50)
[2024-02-01] MEDS: Sodium Chloride 0.9% 1,000 ML IV ONE (13:38)
[2024-02-01] MEDS: LORazepam 2 MG/ML SDV IVPUSH ONE (13:42)
[2024-02-01] MEDS: Pantoprazole 40 MG Vial IVPUSH ONE (13:46)
[2024-02-01 15:01] LABS: BILIRUBIN,URINE NEGATIVE (NEGATIVE); GLUCOSE,URINE NORMAL (NORMAL); KETONES,URINE NEGATIVE (NEGATIVE); LEUKOCYTE ESTERASE,URINE NEGATIVE (NEGATIVE); NITRITE,URINE NEGATIVE (NEGATIVE); OCCULT BLOOD,URINE NEGATIVE (NEGATIVE); PROTEIN,URINE NEGATIVE (NEGATIVE); UROBILINOGEN,URINE NORMAL (NEGATIVE)
[2024-02-01 15:02] LABS: APPEARANCE,URINE CLEAR (CLEAR); BACTERIA,URINE FEW (NS); COLOR,URINE YELLOW (YELLOW); RBC,URINE NOT SEEN (0-5); SQUAMOUS EPITHELIAL CELLS,UR FEW (NS,R,O); WBC,URINE 0-5 (0-5)
[2024-02-01] MEDS: Ondansetron 4 MG/2 ML SDV IVPUSH ONE ×2 (17:16→18:45)
[2024-02-01] MEDS: fentaNYL 100 MCG/2 ML SDV IVPUSH ONE (20:13)
== END 2024-02-01 21:02 | disposition home or self-care (01) ==
LOC: FB.ED 12:51
DX: K58.0 Irritable bowel syndrome with diarrhea (principal); F41.9 Anxiety disorder, unspecified; I10 Essential (primary) hypertension; Z88.6 Allergy status to analgesic agent; Z88.8 Allergy status to other drugs, medicaments and biological substances; Z91.041 Radiographic dye allergy status; Z79.899 Other long term (current) drug therapy
CPT/HCPCS: 74176; 80053; 81001; 82947; 83605; 83690; 84484; 85025; 86140; 93005; 93010; 96361; 96374; 96375; 96376; 99284; 99285-25; A9270-GY; J2060; J2405; J2470; J3010; J7030

== ENCOUNTER 2024-02-03 18:48 | Observation (INO) | payer MEDICARE, BC ==
[2024-02-03] MEDS: LORazepam 1 MG Tab PO ONE (20:04)
[2024-02-03 20:19] LABS: BASOPHILS ABSOLUTE AUTO 0.1 x10-3/uL (0.0-0.1); BASOPHILS PERCENT AUTO 1.6 % (0.2-1.5); EOSINOPHILS ABSOLUTE AUTO 0.1 x10-3/uL (0.0-0.8); EOSINOPHILS PERCENT AUTO 2.3 % (0.6-8.1); HEMATOCRIT 39.9 % (34.2-48.2); HEMOGLOBIN 13.5 g/dL (11.4-15.5); LYMPHOCYTES ABSOLUTE AUTO 1.5 x10-3/uL (1.0-4.4); LYMPHOCYTES PERCENT AUTO 38.2 % (18.4-52.1); MEAN CORPUSCULAR HGB CONC 33.8 g/dL (31.9-34.8); MEAN CORPUSCULAR VOLUME 91.6 fL (76.7-100.5); MEAN PLATELET VOLUME 7.6 fL (7.1-12.4); MONOCYTES ABSOLUTE AUTO 0.7 x10-3/uL (0.3-1.0); MONOCYTES PERCENT AUTO 16.9 % (4.4-15.7); NEUTROPHILS ABSOLUTE AUTO 1.6 x10-3/uL (1.5-6.3); PLATELET COUNT,PLT 337 x10(3)uL (151-488); RED BLOOD CELL COUNT 4.35 x10(6)uL (3.60-5.20); RED CELL DISTRIBUTION WIDTH 18.3 % (12.3-16.5)
[2024-02-03 20:27] LABS: BLOOD UREA NITROGEN,BUN 8 mg/dL (7-18); CALCIUM 8.4 mg/dL (8.6-10.2); CARBON DIOXIDE,CO2 28 mmol/L (21-32); CHLORIDE,CL 105 mmol/L (100-110); CREATININE 0.8 mg/dL (0.55-1.02); EST CRCL DRUG DOSING (CG) 55.13 mL/min; ESTIMATED GFR 76 mL/min (>60); GLUCOSE RANDOM 118 mg/dL (80-116); POTASSIUM,K 3.2 mmol/L (3.5-5.3); SODIUM,NA 141 mmol/L (135-145)
[2024-02-03 20:34] LABS: A/G RATIO 0.9; ALANINE AMINOTRANSFERASE,ALT 12 U/L (12-36); ALBUMIN 3.2 g/dL (3.2-4.6); ALKALINE PHOSPHATASE 45 IU/L (56-112); ASPARTATE AMNIOTRANSFERASE,AST 24 IU/L (5-25); BILIRUBIN TOTAL 0.5 mg/dL (0.1-1.3); PROTEIN TOTAL,TP 6.9 g/dL (6.0-8.0)
[2024-02-04] MEDS: LORazepam 1 MG Tab PO PRN (01:17)
[2024-02-04] MEDS: QUEtiapine 25 MG Tab PO SCH (03:02)
[2024-02-04] MEDS: QUEtiapine 25 MG Tab ONE (03:03)
[2024-02-04] MEDS ORDERED: Prochlorperazine 5 MG Tab PO PRN (12:56)
[2024-02-04] MEDS: Metoprolol Succinate 50 MG Tab.ER PO SCH (13:15)
[2024-02-04] MEDS: Loratadine 10 MG Tab PO SCH (13:17)
[2024-02-04] MEDS: Pantoprazole 40 MG Tab.CR PO SCH (13:17)
[2024-02-04] MEDS: Escitalopram 20 MG Tab PO SCH (13:17)
[2024-02-04] MEDS: Enoxaparin 40 MG/0.4 ML Syringe SUBCUT SCH (17:55)
[2024-02-04] MEDS: Potassium Chloride 20 MEQ in Premix Bag 1 BAG IV SCH (17:55)
[2024-02-04] MEDS: Hyoscyamine 0.125 MG Tab.SL PO SCH (20:45)
[2024-02-04] MEDS: QUEtiapine 25 MG Tab PO PRN (21:28)
[2024-02-05 06:29] LABS: BASOPHILS PERCENT AUTO 0.7 % (0.2-1.5); EOSINOPHILS ABSOLUTE AUTO 0.2 x10-3/uL (0.0-0.8); EOSINOPHILS PERCENT AUTO 3.9 % (0.6-8.1); HEMATOCRIT 38.8 % (34.2-48.2); HEMOGLOBIN 13.2 g/dL (11.4-15.5); LYMPHOCYTES ABSOLUTE AUTO 1.8 x10-3/uL (1.0-4.4); LYMPHOCYTES PERCENT AUTO 41.1 % (18.4-52.1); MEAN CORPUSCULAR HEMOGLOBIN 31.2 pg (23.9-33.9); MEAN CORPUSCULAR VOLUME 91.8 fL (76.7-100.5); MEAN PLATELET VOLUME 7.3 fL (7.1-12.4); MONOCYTES ABSOLUTE AUTO 0.8 x10-3/uL (0.3-1.0); MONOCYTES PERCENT AUTO 17.6 % (4.4-15.7); NEUTROPHILS ABSOLUTE AUTO 1.6 x10-3/uL (1.5-6.3); NEUTROPHILS PERCENT AUTO 36.7 % (30.8-76.2); PLATELET COUNT,PLT 302 x10(3)uL (151-488); RED BLOOD CELL COUNT 4.23 x10(6)uL (3.60-5.20); WHITE BLOOD CELL COUNT,WBC 4.4 x10-3/uL (3.0-10.3)
[2024-02-05 06:36] LABS: BLOOD UREA NITROGEN,BUN 10 mg/dL (7-18); BUN/CREATININE RATIO 12.5 (9-20); CALCIUM 8.6 mg/dL (8.6-10.2); CARBON DIOXIDE,CO2 31 mmol/L (21-32); CHLORIDE,CL 106 mmol/L (100-110); CREATININE 0.8 mg/dL (0.55-1.02); EST CRCL DRUG DOSING (CG) 57.27 mL/min; ESTIMATED GFR 76 mL/min (>60); GLUCOSE RANDOM 111 mg/dL (80-116); MAGNESIUM 1.5 mg/dL (1.8-2.5); POTASSIUM,K 3.1 mmol/L (3.5-5.3); SODIUM,NA 143 mmol/L (135-145)
[2024-02-05] MEDS ORDERED: Potassium Chloride 10 MEQ Tab.ER PO ONE (08:09)
[2024-02-05] MEDS: Lisinopril 20 MG Tab PO SCH (08:16)
[2024-02-05] MEDS: Potassium Chloride 20 MEQ Tab.ER PO ONE (08:27)
[2024-02-05] MEDS: Magnesium Sulfate/Water 2 GM in Premix Bag 1 BAG IV ONE (08:34)
[2024-02-05] MEDS ORDERED: Potassium Chloride 20 MEQ in Premix Bag 1 BAG IV SCH (09:00)
[2024-02-05 11:42] LABS: MAGNESIUM 2.3 mg/dL (1.8-2.5); POTASSIUM,K 3.9 mmol/L (3.5-5.3)
== END 2024-02-05 14:19 | disposition home or self-care (01) ==
LOC: FB.ED 18:48 → FB.MS 02-04 01:06
PROVIDERS: ADMIT Internal Medicine; ATTEND Internal Medicine
DX: K52.9 Noninfective gastroenteritis and colitis, unspecified (principal); E87.6 Hypokalemia; K58.9 Irritable bowel syndrome, unspecified; R53.1 Weakness; F41.1 Generalized anxiety disorder; I10 Essential (primary) hypertension; E66.9 Obesity, unspecified; E83.42 Hypomagnesemia; Z79.899 Other long term (current) drug therapy; Z91.041 Radiographic dye allergy status; Z88.8 Allergy status to other drugs, medicaments and biological substances; Z68.30 Body mass index [BMI] 30.0-30.9, adult
CPT/HCPCS: 36415; 80048; 80053; 83735; 84132; 85025; 87230; 93005; 93010; 96365; 96366; 96367; 96372; 97161-GP; 97165-GO; 99222; 99238; 99285; A9270-GY; G0378; J1650; J3475; J3480

== ENCOUNTER 2024-02-06 08:27 | Emergency (ER) | payer MEDICARE, BC ==
[2024-02-06] MEDS: Cyclobenzaprine 10 MG Tab PO ONE (09:14)
[2024-02-06] MEDS: Ketorolac 30 MG/ML SDV IM ONE (09:14)
[2024-02-06 09:26] LABS: BASOPHILS PERCENT AUTO 0.9 % (0.2-1.5); EOSINOPHILS ABSOLUTE AUTO 0.1 x10-3/uL (0.0-0.8); EOSINOPHILS PERCENT AUTO 2.5 % (0.6-8.1); HEMATOCRIT 39.3 % (34.2-48.2); HEMOGLOBIN 13.2 g/dL (11.4-15.5); LYMPHOCYTES ABSOLUTE AUTO 1.4 x10-3/uL (1.0-4.4); LYMPHOCYTES PERCENT AUTO 32.2 % (18.4-52.1); MEAN CORPUSCULAR HGB CONC 33.5 g/dL (31.9-34.8); MEAN CORPUSCULAR VOLUME 92.4 fL (76.7-100.5); MEAN PLATELET VOLUME 7.4 fL (7.1-12.4); MONOCYTES ABSOLUTE AUTO 0.6 x10-3/uL (0.3-1.0); NEUTROPHILS ABSOLUTE AUTO 2.3 x10-3/uL (1.5-6.3); NEUTROPHILS PERCENT AUTO 51.4 % (30.8-76.2); PLATELET COUNT,PLT 370 x10(3)uL (151-488); RED BLOOD CELL COUNT 4.25 x10(6)uL (3.60-5.20); RED CELL DISTRIBUTION WIDTH 18.2 % (12.3-16.5); WHITE BLOOD CELL COUNT,WBC 4.5 x10-3/uL (3.0-10.3)
[2024-02-06 09:32] LABS: BLOOD UREA NITROGEN,BUN 12 mg/dL (7-18); BUN/CREATININE RATIO 13.3 (9-20); CALCIUM 8.8 mg/dL (8.6-10.2); CARBON DIOXIDE,CO2 28 mmol/L (21-32); CHLORIDE,CL 99 mmol/L (100-110); CREATININE 0.9 mg/dL (0.55-1.02); ESTIMATED GFR 66 mL/min (>60); GLUCOSE RANDOM 126 mg/dL (80-116); POTASSIUM,K 3.4 mmol/L (3.5-5.3); SODIUM,NA 137 mmol/L (135-145)
[2024-02-06 09:46] LABS: ALANINE AMINOTRANSFERASE,ALT 20 U/L (12-36); ALBUMIN 3.5 g/dL (3.2-4.6); ALKALINE PHOSPHATASE 52 IU/L (56-112); ASPARTATE AMNIOTRANSFERASE,AST 37 IU/L (5-25); BILIRUBIN TOTAL 0.6 mg/dL (0.1-1.3)
[2024-02-06] MEDS: Potassium Chloride 10 MEQ Tab.ER PO ONE (11:34)
== END 2024-02-06 11:20 | disposition home or self-care (01) ==
LOC: FB.ED 08:27
DX: M54.50 Low back pain, unspecified (principal); R53.1 Weakness; I10 Essential (primary) hypertension; E66.9 Obesity, unspecified; Z88.8 Allergy status to other drugs, medicaments and biological substances; Z91.041 Radiographic dye allergy status; Z79.899 Other long term (current) drug therapy; Z68.32 Body mass index [BMI] 32.0-32.9, adult; W19.XXXA Unspecified fall, initial encounter
CPT/HCPCS: 36415; 72131; 80053; 85025; 96372; 99285; A9270; J1885

== ENCOUNTER 2024-02-11 14:46 | Emergency (ER) | payer MEDICARE, BC ==
[2024-02-11] MEDS: Acetaminophen 500 MG Tab PO ONE (15:09)
[2024-02-11] MEDS: QUEtiapine 25 MG Tab PO ONE (15:09)
== END 2024-02-11 16:43 | disposition home or self-care (01) ==
LOC: FB.ED 14:46
DX: F41.1 Generalized anxiety disorder (principal); K64.8 Other hemorrhoids; I10 Essential (primary) hypertension; E66.9 Obesity, unspecified; Z79.899 Other long term (current) drug therapy; Z91.041 Radiographic dye allergy status; Z88.8 Allergy status to other drugs, medicaments and biological substances; Z88.6 Allergy status to analgesic agent
CPT/HCPCS: 99283; A9270

== ENCOUNTER 2024-02-18 06:33 | Emergency (ER) | payer MEDICARE, BC ==
[2024-02-18] MEDS ORDERED: Sodium Chloride 0.9% 10 ML Syringe FLUSH PRN (07:08)
[2024-02-18 07:33] LABS: BASOPHILS PERCENT AUTO 0.7 % (0.2-1.5); EOSINOPHILS ABSOLUTE AUTO 0.1 x10-3/uL (0.0-0.8); EOSINOPHILS PERCENT AUTO 2.2 % (0.6-8.1); HEMATOCRIT 42.2 % (34.2-48.2); LYMPHOCYTES ABSOLUTE AUTO 1.7 x10-3/uL (1.0-4.4); LYMPHOCYTES PERCENT AUTO 27.7 % (18.4-52.1); MEAN CORPUSCULAR HEMOGLOBIN 30.9 pg (23.9-33.9); MEAN CORPUSCULAR HGB CONC 33.2 g/dL (31.9-34.8); MEAN CORPUSCULAR VOLUME 93.1 fL (76.7-100.5); MEAN PLATELET VOLUME 6.8 fL (7.1-12.4); MONOCYTES ABSOLUTE AUTO 0.6 x10-3/uL (0.3-1.0); MONOCYTES PERCENT AUTO 9.9 % (4.4-15.7); NEUTROPHILS ABSOLUTE AUTO 3.7 x10-3/uL (1.5-6.3); NEUTROPHILS PERCENT AUTO 59.5 % (30.8-76.2); PLATELET COUNT,PLT 352 x10(3)uL (151-488); RED BLOOD CELL COUNT 4.53 x10(6)uL (3.60-5.20); RED CELL DISTRIBUTION WIDTH 18.9 % (12.3-16.5); WHITE BLOOD CELL COUNT,WBC 6.2 x10-3/uL (3.0-10.3)
[2024-02-18 07:39] LABS: BLOOD UREA NITROGEN,BUN 10 mg/dL (7-18); BUN/CREATININE RATIO 12.5 (9-20); CALCIUM 9.2 mg/dL (8.6-10.2); CARBON DIOXIDE,CO2 26 mmol/L (21-32); CHLORIDE,CL 99 mmol/L (100-110); CREATININE 0.8 mg/dL (0.55-1.02); ESTIMATED GFR 76 mL/min (>60); GLUCOSE RANDOM 130 mg/dL (80-116); POTASSIUM,K 3.4 mmol/L (3.5-5.3); SODIUM,NA 134 mmol/L (135-145)
[2024-02-18 07:45] LABS: A/G RATIO 1.1; ALANINE AMINOTRANSFERASE,ALT 16 U/L (12-36); ALBUMIN 3.8 g/dL (3.2-4.6); ALKALINE PHOSPHATASE 56 IU/L (56-112); ASPARTATE AMNIOTRANSFERASE,AST 16 IU/L (5-25); BILIRUBIN TOTAL 0.8 mg/dL (0.1-1.3); MAGNESIUM 1.3 mg/dL (1.8-2.5); PROTEIN TOTAL,TP 7.3 g/dL (6.0-8.0)
[2024-02-18] MEDS: Sodium Chloride 0.9% 500 ML IV ONE (07:54)
[2024-02-18] MEDS: Haloperidol Lactate 5 MG/ML SDV IV ONE (07:55)
[2024-02-18] MEDS: diphenhydrAMINE 50 MG/ML SDV IVPUSH ONE (08:20)
[2024-02-18] MEDS: Magnesium Oxide 400 MG Tab PO ONE (08:31)
[2024-02-18] MEDS: Magnesium Sulfate/Water 2 GM in Premix Bag 1 BAG IV ONE (08:35)
[2024-02-18] MEDS: Potassium Chloride 20 MEQ Tab.ER PO ONE (09:20)
== END 2024-02-18 10:20 | disposition home or self-care (01) ==
LOC: FB.ED 06:33
DX: F41.9 Anxiety disorder, unspecified (principal); R19.7 Diarrhea, unspecified; E83.42 Hypomagnesemia; E87.6 Hypokalemia; I10 Essential (primary) hypertension; E66.9 Obesity, unspecified; Z79.899 Other long term (current) drug therapy; Z88.5 Allergy status to narcotic agent; Z88.8 Allergy status to other drugs, medicaments and biological substances; Z91.041 Radiographic dye allergy status
CPT/HCPCS: 36415; 80053; 83605; 83735; 84484; 85025; 93005; 96361; 96365; 96375; 99284-25; A9270-GY; J1200; J1630; J3475; J7040

== ENCOUNTER 2024-02-20 02:50 | Emergency (ER) | payer MEDICARE, BC | END 2024-02-20 03:37 | disposition home or self-care (01) | LOC: FB.ED 02:50 | DX: F41.9 Anxiety disorder, unspecified (principal); I10 Essential (primary) hypertension; E66.9 Obesity, unspecified; Z79.899 Other long term (current) drug therapy; Z88.6 Allergy status to analgesic agent; Z88.5 Allergy status to narcotic agent; Z91.041 Radiographic dye allergy status | CPT/HCPCS: 99283 ==

== ENCOUNTER 2024-02-27 16:54 | Inpatient (IN) | payer MEDICARE, BC ==
[2024-02-27 18:24] LABS: BASOPHILS PERCENT AUTO 0.7 % (0.2-1.5); BLOOD UREA NITROGEN,BUN 7 mg/dL (7-18); BUN/CREATININE RATIO 8.8 (9-20); CALCIUM 8.9 mg/dL (8.6-10.2); CARBON DIOXIDE,CO2 29 mmol/L (21-32); CHLORIDE,CL 102 mmol/L (100-110); CREATININE 0.8 mg/dL (0.55-1.02); EOSINOPHILS ABSOLUTE AUTO 0.1 x10-3/uL (0.0-0.8); EOSINOPHILS PERCENT AUTO 1.5 % (0.6-8.1); ESTIMATED GFR 76 mL/min (>60); GLUCOSE RANDOM 102 mg/dL (80-116); HEMATOCRIT 39.7 % (34.2-48.2); HEMOGLOBIN 13.2 g/dL (11.4-15.5); LYMPHOCYTES ABSOLUTE AUTO 1.4 x10-3/uL (1.0-4.4); LYMPHOCYTES PERCENT AUTO 30.3 % (18.4-52.1); MEAN CORPUSCULAR HEMOGLOBIN 31.2 pg (23.9-33.9); MEAN CORPUSCULAR HGB CONC 33.1 g/dL (31.9-34.8); MEAN CORPUSCULAR VOLUME 94.2 fL (76.7-100.5); MONOCYTES ABSOLUTE AUTO 0.7 x10-3/uL (0.3-1.0); MONOCYTES PERCENT AUTO 15.2 % (4.4-15.7); NEUTROPHILS ABSOLUTE AUTO 2.5 x10-3/uL (1.5-6.3); NEUTROPHILS PERCENT AUTO 52.3 % (30.8-76.2); PLATELET COUNT,PLT 319 x10(3)uL (151-488); POTASSIUM,K 3.5 mmol/L (3.5-5.3); RED BLOOD CELL COUNT 4.22 x10(6)uL (3.60-5.20); RED CELL DISTRIBUTION WIDTH 18.5 % (12.3-16.5); SODIUM,NA 142 mmol/L (135-145); WHITE BLOOD CELL COUNT,WBC 4.7 x10-3/uL (3.0-10.3)
[2024-02-27 18:30] LABS: A/G RATIO 1.1; ALANINE AMINOTRANSFERASE,ALT 24 U/L (12-36); ALBUMIN 3.3 g/dL (3.2-4.6); ALKALINE PHOSPHATASE 47 IU/L (56-112); ASPARTATE AMNIOTRANSFERASE,AST 29 IU/L (5-25); BILIRUBIN TOTAL 0.7 mg/dL (0.1-1.3); CREATINE KINASE,CK 133 IU/L (60-160); MAGNESIUM 1.3 mg/dL (1.8-2.5); PROTEIN TOTAL,TP 6.3 g/dL (6.0-8.0)
[2024-02-27 18:48] LABS: BILIRUBIN,URINE NEGATIVE (NEGATIVE); GLUCOSE,URINE NORMAL (NORMAL); KETONES,URINE 50 mg/dL (NEGATIVE); LEUKOCYTE ESTERASE,URINE NEGATIVE (NEGATIVE); NITRITE,URINE NEGATIVE (NEGATIVE); OCCULT BLOOD,URINE NEGATIVE (NEGATIVE); PROTEIN,URINE NEGATIVE (NEGATIVE); UROBILINOGEN,URINE 1 mg/dL (NEGATIVE)
[2024-02-27 18:56] LABS: APPEARANCE,URINE CLEAR (CLEAR); BACTERIA,URINE RARE (NS); COLOR,URINE YELLOW (YELLOW); HYALINE CASTS,URINE FEW (NS); RBC,URINE 0-5 (0-5); SQUAMOUS EPITHELIAL CELLS,UR OCCASIONAL (NS,R,O); WBC,URINE 0-5 (0-5)
[2024-02-27] MEDS: Sodium Chloride 0.9% 500 ML IV ONE (20:00)
[2024-02-27] MEDS ORDERED: Ondansetron 4 MG/2 ML SDV IV PRN (20:49)
[2024-02-27] MEDS: Sodium Chloride 0.9% 1,000 ML IV SCH (21:38)
[2024-02-27] MEDS: Pantoprazole 40 MG Vial IVPUSH SCH (21:41)
[2024-02-27] MEDS: Magnesium Sulfate/Water 2 GM in Premix Bag 1 BAG IV SCH (21:47)
[2024-02-27] MEDS: LORazepam 2 MG/ML SDV IV PRN (22:17)
[2024-02-28 06:56] LABS: BASOPHILS PERCENT AUTO 0.7 % (0.2-1.5); EOSINOPHILS ABSOLUTE AUTO 0.1 x10-3/uL (0.0-0.8); HEMATOCRIT 39.2 % (34.2-48.2); HEMOGLOBIN 13.1 g/dL (11.4-15.5); LYMPHOCYTES ABSOLUTE AUTO 1.6 x10-3/uL (1.0-4.4); LYMPHOCYTES PERCENT AUTO 32.5 % (18.4-52.1); MEAN CORPUSCULAR HEMOGLOBIN 31.6 pg (23.9-33.9); MEAN CORPUSCULAR HGB CONC 33.4 g/dL (31.9-34.8); MEAN CORPUSCULAR VOLUME 94.6 fL (76.7-100.5); MONOCYTES ABSOLUTE AUTO 0.7 x10-3/uL (0.3-1.0); MONOCYTES PERCENT AUTO 14.7 % (4.4-15.7); NEUTROPHILS ABSOLUTE AUTO 2.5 x10-3/uL (1.5-6.3); NEUTROPHILS PERCENT AUTO 49.1 % (30.8-76.2); PLATELET COUNT,PLT 313 x10(3)uL (151-488); RED BLOOD CELL COUNT 4.14 x10(6)uL (3.60-5.20); RED CELL DISTRIBUTION WIDTH 18.8 % (12.3-16.5)
[2024-02-28 06:58] LABS: BLOOD UREA NITROGEN,BUN 6 mg/dL (7-18); CALCIUM 8.2 mg/dL (8.6-10.2); CARBON DIOXIDE,CO2 28 mmol/L (21-32); CHLORIDE,CL 104 mmol/L (100-110); CREATININE 0.6 mg/dL (0.55-1.02); EST CRCL DRUG DOSING (CG) 76.36 mL/min; ESTIMATED GFR 92 mL/min (>60); GLUCOSE RANDOM 98 mg/dL (80-116); MAGNESIUM 2.4 mg/dL (1.8-2.5); POTASSIUM,K 3.3 mmol/L (3.5-5.3); SODIUM,NA 140 mmol/L (135-145)
[2024-02-28] MEDS: Lisinopril 20 MG Tab PO SCH (10:17)
[2024-02-28] MEDS: Metoprolol Succinate 50 MG Tab.ER PO SCH (10:18)
[2024-02-28] MEDS: Potassium Chloride 20 MEQ in Premix Bag 1 BAG IV SCH (10:26)
[2024-02-28] MEDS: Acetaminophen 325 MG Tab PO PRN (11:36)
[2024-02-28] MEDS: Potassium Chloride 20 MEQ Tab.ER PO ONE (17:30)
[2024-02-28] MEDS: Heparin Sodium 5,000 Units/ML Vial SUBCUT SCH (17:37)
[2024-02-28] MEDS: Sodium Chloride 0.9% 10 ML Syringe FLUSH PRN (19:58)
[2024-02-29] MEDS: traMADol 50 MG Tab PO PRN ×2 (04:34→15:59)
[2024-02-29] MEDS: ALPRAZolam 0.25 MG Tab PO PRN ×2 (04:36→14:13)
[2024-02-29 06:20] LABS: HEMATOCRIT 36.2 % (34.2-48.2); HEMOGLOBIN 11.9 g/dL (11.4-15.5); MEAN CORPUSCULAR HEMOGLOBIN 31.3 pg (23.9-33.9); MEAN CORPUSCULAR HGB CONC 32.9 g/dL (31.9-34.8); MEAN CORPUSCULAR VOLUME 95.1 fL (76.7-100.5); MEAN PLATELET VOLUME 7.1 fL (7.1-12.4); PLATELET COUNT,PLT 274 x10(3)uL (151-488); RED BLOOD CELL COUNT 3.81 x10(6)uL (3.60-5.20); RED CELL DISTRIBUTION WIDTH 18.4 % (12.3-16.5); WHITE BLOOD CELL COUNT,WBC 3.8 x10-3/uL (3.0-10.3)
[2024-02-29 06:29] LABS: LYMPHOCYTES PERCENT MAN 33 % (13-37); MONOCYTES PERCENT MAN 11 % (4-12); SEG NEUTROPHILS PERCENT MAN 56 % (46-82)
[2024-02-29 06:37] LABS: ALANINE AMINOTRANSFERASE,ALT 25 U/L (12-36); ALBUMIN 2.6 g/dL (3.2-4.6); ALKALINE PHOSPHATASE 39 IU/L (56-112); ASPARTATE AMNIOTRANSFERASE,AST 32 IU/L (5-25); BILIRUBIN TOTAL 0.5 mg/dL (0.1-1.3); CALCIUM 8.1 mg/dL (8.6-10.2); CARBON DIOXIDE,CO2 31 mmol/L (21-32); CHLORIDE,CL 108 mmol/L (100-110); CREATININE 0.7 mg/dL (0.55-1.02); EST CRCL DRUG DOSING (CG) 65.45 mL/min; ESTIMATED GFR 89 mL/min (>60); GLUCOSE RANDOM 109 mg/dL (80-116); MAGNESIUM 1.6 mg/dL (1.8-2.5); POTASSIUM,K 3.6 mmol/L (3.5-5.3); PROTEIN TOTAL,TP 5.3 g/dL (6.0-8.0); SODIUM,NA 143 mmol/L (135-145)
[2024-02-29 06:49] LABS: BLOOD UREA NITROGEN,BUN < 5 mg/dL (7-18); BUN/CREATININE RATIO 7.1 (9-20)
[2024-02-29] MEDS ORDERED: Hyoscyamine 0.125 MG/ML Bottle PO SCH (09:00)
[2024-02-29] MEDS ORDERED: Hyoscyamine 0.125 MG Tab.SL PO SCH (09:00)
[2024-02-29] MEDS: Hyoscyamine 0.125 MG Tab.SL PO SCH (09:24)
[2024-02-29] MEDS: Escitalopram 20 MG Tab PO SCH (09:24)
[2024-02-29] MEDS: Magnesium Sulfate/Water 2 GM in Premix Bag 1 BAG IV ONE (10:06)
[2024-02-29] MEDS: Enoxaparin 40 MG/0.4 ML Syringe SUBCUT SCH (13:17)
[2024-03-01] MEDS: Pantoprazole 40 MG Tab.CR PO SCH (06:49)
[2024-03-01] MEDS: ALPRAZolam 0.25 MG Tab PO PRN (11:29)
[2024-03-02 06:27] LABS: BASOPHILS PERCENT AUTO 0.7 % (0.2-1.5); EOSINOPHILS ABSOLUTE AUTO 0.2 x10-3/uL (0.0-0.8); EOSINOPHILS PERCENT AUTO 4.8 % (0.6-8.1); HEMATOCRIT 37.1 % (34.2-48.2); HEMOGLOBIN 12.4 g/dL (11.4-15.5); LYMPHOCYTES ABSOLUTE AUTO 1.3 x10-3/uL (1.0-4.4); LYMPHOCYTES PERCENT AUTO 32.5 % (18.4-52.1); MEAN CORPUSCULAR HEMOGLOBIN 31.3 pg (23.9-33.9); MEAN CORPUSCULAR HGB CONC 33.4 g/dL (31.9-34.8); MEAN PLATELET VOLUME 7.4 fL (7.1-12.4); MONOCYTES ABSOLUTE AUTO 0.6 x10-3/uL (0.3-1.0); MONOCYTES PERCENT AUTO 15.5 % (4.4-15.7); NEUTROPHILS ABSOLUTE AUTO 1.9 x10-3/uL (1.5-6.3); NEUTROPHILS PERCENT AUTO 46.5 % (30.8-76.2); PLATELET COUNT,PLT 277 x10(3)uL (151-488); RED CELL DISTRIBUTION WIDTH 17.8 % (12.3-16.5); WHITE BLOOD CELL COUNT,WBC 4.1 x10-3/uL (3.0-10.3)
[2024-03-02 06:31] LABS: CALCIUM 8.9 mg/dL (8.6-10.2); CARBON DIOXIDE,CO2 35 mmol/L (21-32); CHLORIDE,CL 103 mmol/L (100-110); CREATININE 0.6 mg/dL (0.55-1.02); EST CRCL DRUG DOSING (CG) 76.36 mL/min; ESTIMATED GFR 92 mL/min (>60); GLUCOSE RANDOM 107 mg/dL (80-116); MAGNESIUM 1.5 mg/dL (1.8-2.5); POTASSIUM,K 3.7 mmol/L (3.5-5.3); SODIUM,NA 143 mmol/L (135-145)
[2024-03-02 06:40] LABS: BLOOD UREA NITROGEN,BUN < 5 mg/dL (7-18); BUN/CREATININE RATIO 8.3 (9-20); RED BLOOD CELL COUNT 3.95 x10(6)uL (3.60-5.20)
[2024-03-02] MEDS: ALPRAZolam 0.25 MG Tab PO ONE (09:43)
[2024-03-02] MEDS: Magnesium Sulfate/Water 2 GM in Premix Bag 1 BAG IV ONE (10:17)
[2024-03-02] MEDS: Polyethylene Glycol 3350 Powder 17 GM Packet PO PRN (22:40)
[2024-03-03 06:27] LABS: HEMATOCRIT 37.5 % (34.2-48.2); HEMOGLOBIN 12.6 g/dL (11.4-15.5); MEAN CORPUSCULAR HEMOGLOBIN 31.7 pg (23.9-33.9); MEAN CORPUSCULAR HGB CONC 33.6 g/dL (31.9-34.8); MEAN CORPUSCULAR VOLUME 94.6 fL (76.7-100.5); MEAN PLATELET VOLUME 7.4 fL (7.1-12.4); PLATELET COUNT,PLT 272 x10(3)uL (151-488); RED BLOOD CELL COUNT 3.97 x10(6)uL (3.60-5.20); WHITE BLOOD CELL COUNT,WBC 4.6 x10-3/uL (3.0-10.3)
[2024-03-03 06:36] LABS: CALCIUM 8.7 mg/dL (8.6-10.2); CARBON DIOXIDE,CO2 35 mmol/L (21-32); CHLORIDE,CL 102 mmol/L (100-110); CREATININE 0.7 mg/dL (0.55-1.02); EST CRCL DRUG DOSING (CG) 65.45 mL/min; ESTIMATED GFR 89 mL/min (>60); GLUCOSE RANDOM 103 mg/dL (80-116); MAGNESIUM 1.7 mg/dL (1.8-2.5); SODIUM,NA 141 mmol/L (135-145)
[2024-03-03 06:40] LABS: BLOOD UREA NITROGEN,BUN < 5 mg/dL (7-18); BUN/CREATININE RATIO 7.1 (9-20)
[2024-03-03 06:41] LABS: ANISOCYTOSIS FEW; LYMPHOCYTES PERCENT MAN 32 % (13-37); MONOCYTES PERCENT MAN 11 % (4-12); SEG NEUTROPHILS PERCENT MAN 57 % (46-82)
[2024-03-03] MEDS: Magnesium Oxide 400 MG Tab PO SCH (10:20)
[2024-03-04] MEDS ORDERED: Witch Hazel Medicated Pads 40/Jar TOP PRN (08:38)
[2024-03-04 08:50] LABS: BILIRUBIN,URINE NEGATIVE (NEGATIVE); GLUCOSE,URINE NORMAL (NORMAL); KETONES,URINE NEGATIVE (NEGATIVE); LEUKOCYTE ESTERASE,URINE NEGATIVE (NEGATIVE); NITRITE,URINE NEGATIVE (NEGATIVE); OCCULT BLOOD,URINE NEGATIVE (NEGATIVE); PROTEIN,URINE NEGATIVE (NEGATIVE); UROBILINOGEN,URINE NORMAL (NEGATIVE)
[2024-03-04 08:59] LABS: APPEARANCE,URINE CLEAR (CLEAR); COLOR,URINE YELLOW (YELLOW)
[2024-03-04] MEDS: traMADol 50 MG Tab PO ONE (10:47)
[2024-03-04] MEDS: Lidocaine 4% 1 each Patch TOP PRN (10:47)
[2024-03-04] MEDS: Mineral Oil/Petrolatum/Phenylephrine/Shark Liver Oil Oint 57 GM Tube RECTAL PRN (10:51)
[2024-03-04] MEDS: Hydrochlorothiazide 12.5 MG Cap PO SCH (11:50)
[2024-03-04] MEDS: ALPRAZolam 0.25 MG Tab PO SCH (20:40)
[2024-03-05 06:39] LABS: BASOPHILS ABSOLUTE AUTO 0.1 x10-3/uL (0.0-0.1); BASOPHILS PERCENT AUTO 1.4 % (0.2-1.5); EOSINOPHILS ABSOLUTE AUTO 0.2 x10-3/uL (0.0-0.8); EOSINOPHILS PERCENT AUTO 3.5 % (0.6-8.1); HEMATOCRIT 40.3 % (34.2-48.2); HEMOGLOBIN 13.3 g/dL (11.4-15.5); LYMPHOCYTES ABSOLUTE AUTO 1.7 x10-3/uL (1.0-4.4); LYMPHOCYTES PERCENT AUTO 36.7 % (18.4-52.1); MEAN CORPUSCULAR HEMOGLOBIN 31.2 pg (23.9-33.9); MEAN CORPUSCULAR HGB CONC 32.9 g/dL (31.9-34.8); MEAN CORPUSCULAR VOLUME 94.8 fL (76.7-100.5); MEAN PLATELET VOLUME 7.5 fL (7.1-12.4); MONOCYTES ABSOLUTE AUTO 0.8 x10-3/uL (0.3-1.0); MONOCYTES PERCENT AUTO 18.2 % (4.4-15.7); NEUTROPHILS ABSOLUTE AUTO 1.8 x10-3/uL (1.5-6.3); NEUTROPHILS PERCENT AUTO 40.2 % (30.8-76.2); PLATELET COUNT,PLT 291 x10(3)uL (151-488); RED BLOOD CELL COUNT 4.26 x10(6)uL (3.60-5.20); RED CELL DISTRIBUTION WIDTH 17.4 % (12.3-16.5); WHITE BLOOD CELL COUNT,WBC 4.5 x10-3/uL (3.0-10.3)
[2024-03-05 06:54] LABS: BLOOD UREA NITROGEN,BUN 8 mg/dL (7-18); BUN/CREATININE RATIO 13.3 (9-20); CALCIUM 8.9 mg/dL (8.6-10.2); CARBON DIOXIDE,CO2 31 mmol/L (21-32); CREATININE 0.6 mg/dL (0.55-1.02); EST CRCL DRUG DOSING (CG) 76.36 mL/min; ESTIMATED GFR 92 mL/min (>60); GLUCOSE RANDOM 102 mg/dL (80-116)
[2024-03-05 07:01] LABS: CHLORIDE,CL 101 mmol/L (100-110); POTASSIUM,K 4.1 mmol/L (3.5-5.3); SODIUM,NA 139 mmol/L (135-145)
== END 2024-03-05 12:55 | disposition home or self-care (01) | DRG 392 ==
LOC: FB.ED 16:54 → FB.MS 20:12 → OBSVTOIN 02-28 14:26
PROVIDERS: ADMIT Emergency Medicine; ATTEND Family Medicine
DX: R19.7 Diarrhea, unspecified (principal); K58.2 Mixed irritable bowel syndrome; E86.0 Dehydration; I10 Essential (primary) hypertension; Z68.30 Body mass index [BMI] 30.0-30.9, adult; E66.9 Obesity, unspecified; F41.9 Anxiety disorder, unspecified; F32.A Depression, unspecified; G89.29 Other chronic pain; E87.6 Hypokalemia; E83.42 Hypomagnesemia; M54.50 Low back pain, unspecified; M53.3 Sacrococcygeal disorders, not elsewhere classified; K62.89 Other specified diseases of anus and rectum; R41.89 Other symptoms and signs involving cognitive functions and awareness; R62.7 Adult failure to thrive; Z88.6 Allergy status to analgesic agent; Z88.8 Allergy status to other drugs, medicaments and biological substances; Z98.49 Cataract extraction status, unspecified eye; Z90.89 Acquired absence of other organs; Z91.041 Radiographic dye allergy status; Z98.890 Other specified postprocedural states; Z79.899 Other long term (current) drug therapy
CPT/HCPCS: 36415 ×2; 70450; 71045; 80048; 80053; 81001; 82550; 83605; 83735 ×2; 84484; 85025 ×2; 86140; 87086; 93005; 93010; 94150 ×7; 96365; 96366 ×2; 96375; 96376; 99285 ×2; A9270 ×3; C1758; G0378 ×3; J2060 ×2; J2470; J3475 ×2; J3480; J7030 ×2; J7040; 81003; 94762; 97161-GP; 97530-GP; 99222; 99232; 99238; J1644; J1650; J3490

== ENCOUNTER 2024-05-05 19:51 | Emergency (ER) | payer MEDICARE, BC ==
[2024-05-05] MEDS: Magnesium Citrate Solution 296 ML Bottle PO ONE (20:31)
== END 2024-05-05 21:00 | disposition home or self-care (01) ==
LOC: FB.ED 19:51
DX: K59.00 Constipation, unspecified (principal); I10 Essential (primary) hypertension; Z79.899 Other long term (current) drug therapy; Z88.6 Allergy status to analgesic agent; Z88.8 Allergy status to other drugs, medicaments and biological substances; Z91.041 Radiographic dye allergy status
CPT/HCPCS: 99283; A9270

== ENCOUNTER 2024-05-06 11:04 | Emergency (ER) | payer MEDICARE, BC ==
[2024-05-06 11:56] LABS: HEMATOCRIT 42.4 % (34.2-48.2); MEAN CORPUSCULAR HGB CONC 33.1 g/dL (31.9-34.8); MEAN CORPUSCULAR VOLUME 87.6 fL (76.7-100.5); MEAN PLATELET VOLUME 7.4 fL (7.1-12.4); PLATELET COUNT,PLT 387 x10(3)uL (151-488); RED BLOOD CELL COUNT 4.84 x10(6)uL (3.60-5.20); RED CELL DISTRIBUTION WIDTH 15.1 % (12.3-16.5)
[2024-05-06 11:59] LABS: BLOOD UREA NITROGEN,BUN 20 mg/dL (7-18); BUN/CREATININE RATIO 22.2 (9-20); CALCIUM 9.2 mg/dL (8.6-10.2); CARBON DIOXIDE,CO2 29 mmol/L (21-32); CHLORIDE,CL 103 mmol/L (100-110); CREATININE 0.9 mg/dL (0.55-1.02); ESTIMATED GFR 66 mL/min (>60); GLUCOSE RANDOM 123 mg/dL (80-116); POTASSIUM,K 4.4 mmol/L (3.5-5.3); SODIUM,NA 138 mmol/L (135-145)
[2024-05-06 12:05] LABS: A/G RATIO 0.9; ALANINE AMINOTRANSFERASE,ALT 45 U/L (12-36); ALBUMIN 3.2 g/dL (3.2-4.6); ALKALINE PHOSPHATASE 82 IU/L (56-112); ASPARTATE AMNIOTRANSFERASE,AST 23 IU/L (5-25); BILIRUBIN TOTAL 0.3 mg/dL (0.1-1.3); PROTEIN TOTAL,TP 6.9 g/dL (6.0-8.0)
[2024-05-06 12:11] LABS: EOSINOPHILS PERCENT MAN 1 % (0-5); LYMPHOCYTES PERCENT MAN 30 % (13-37); MONOCYTES PERCENT MAN 12 % (4-12); SEG NEUTROPHILS PERCENT MAN 57 % (46-82)
[2024-05-06 12:17] LABS: BILIRUBIN,URINE NEGATIVE (NEGATIVE); GLUCOSE,URINE NORMAL (NORMAL); KETONES,URINE NEGATIVE (NEGATIVE); LEUKOCYTE ESTERASE,URINE MODERATE (NEGATIVE); NITRITE,URINE NEGATIVE (NEGATIVE); OCCULT BLOOD,URINE NEGATIVE (NEGATIVE); PROTEIN,URINE NEGATIVE (NEGATIVE); UROBILINOGEN,URINE NORMAL (NEGATIVE)
[2024-05-06 12:18] LABS: APPEARANCE,URINE SLIGHTLY CLOUDY (CLEAR); COLOR,URINE YELLOW (YELLOW)
[2024-05-06 12:26] LABS: EPITHELIAL CELLS,URINE FEW; RBC,URINE 0-5 (0-5); WBC,URINE 50-75 (0-5)
[2024-05-06 12:27] LABS: BACTERIA,URINE MANY (NS)
[2024-05-06] MEDS: cefTRIAXone 2 GM Vial IVPUSH ONE (12:55)
[2024-05-06] MEDS: cefTRIAXone 1 GM Vial IVPUSH ONE (12:55)
== END 2024-05-06 13:04 | disposition home or self-care (01) ==
LOC: FB.ED 11:04
DX: K59.00 Constipation, unspecified (principal); N30.01 Acute cystitis with hematuria; I10 Essential (primary) hypertension; E66.9 Obesity, unspecified; Z68.34 Body mass index [BMI] 34.0-34.9, adult; Z79.899 Other long term (current) drug therapy; Z79.82 Long term (current) use of aspirin; Z91.041 Radiographic dye allergy status; Z88.8 Allergy status to other drugs, medicaments and biological substances
CPT/HCPCS: 36415; 74176; 80053; 81001; 85025; 87086; 87088; 87186; 96374; 99284; 99284-25; J0696

== ENCOUNTER 2024-05-24 11:31 | Inpatient (IN) | payer MEDICARE, BC ==
[2024-05-24 12:27] LABS: BASOPHILS ABSOLUTE AUTO 0.1 x10-3/uL (0.0-0.1); BASOPHILS PERCENT AUTO 0.6 % (0.2-1.5); EOSINOPHILS PERCENT AUTO 0.3 % (0.6-8.1); HEMATOCRIT 39.6 % (34.2-48.2); HEMOGLOBIN 13.1 g/dL (11.4-15.5); LYMPHOCYTES ABSOLUTE AUTO 1.6 x10-3/uL (1.0-4.4); LYMPHOCYTES PERCENT AUTO 13.7 % (18.4-52.1); MEAN CORPUSCULAR HEMOGLOBIN 28.2 pg (23.9-33.9); MEAN CORPUSCULAR HGB CONC 33.2 g/dL (31.9-34.8); MEAN CORPUSCULAR VOLUME 85.2 fL (76.7-100.5); MEAN PLATELET VOLUME 7.5 fL (7.1-12.4); MONOCYTES ABSOLUTE AUTO 1.3 x10-3/uL (0.3-1.0); MONOCYTES PERCENT AUTO 11.5 % (4.4-15.7); NEUTROPHILS ABSOLUTE AUTO 8.4 x10-3/uL (1.5-6.3); NEUTROPHILS PERCENT AUTO 73.9 % (30.8-76.2); PLATELET COUNT,PLT 360 x10(3)uL (151-488); RED BLOOD CELL COUNT 4.64 x10(6)uL (3.60-5.20); RED CELL DISTRIBUTION WIDTH 15.6 % (12.3-16.5); WHITE BLOOD CELL COUNT,WBC 11.4 x10-3/uL (3.0-10.3)
[2024-05-24 12:37] LABS: BLOOD UREA NITROGEN,BUN 38 mg/dL (7-18); BUN/CREATININE RATIO 34.5 (9-20); CALCIUM 9.6 mg/dL (8.6-10.2); CARBON DIOXIDE,CO2 26 mmol/L (21-32); CHLORIDE,CL 99 mmol/L (100-110); CREATININE 1.1 mg/dL (0.55-1.02); ESTIMATED GFR 52 mL/min (>60); GLUCOSE RANDOM 149 mg/dL (80-116); POTASSIUM,K 3.5 mmol/L (3.5-5.3); SODIUM,NA 137 mmol/L (135-145)
[2024-05-24 12:43] LABS: A/G RATIO 0.9; ALANINE AMINOTRANSFERASE,ALT 46 U/L (12-36); ALBUMIN 3.4 g/dL (3.2-4.6); ALKALINE PHOSPHATASE 99 IU/L (56-112); ASPARTATE AMNIOTRANSFERASE,AST 41 IU/L (5-25); BILIRUBIN TOTAL 1.4 mg/dL (0.1-1.3); PROTEIN TOTAL,TP 7.3 g/dL (6.0-8.0)
[2024-05-24 12:51] LABS: LACTIC ACID 2.4 mmol/L (0.4-2.0)
[2024-05-24] MEDS: Sodium Chloride 0.9% 1,000 ML IV ONE (13:04)
[2024-05-24 14:19] LABS: BILIRUBIN,URINE SMALL (NEGATIVE); GLUCOSE,URINE NORMAL (NORMAL); KETONES,URINE 15 mg/dL (NEGATIVE); LEUKOCYTE ESTERASE,URINE SMALL (NEGATIVE); NITRITE,URINE NEGATIVE (NEGATIVE); OCCULT BLOOD,URINE NEGATIVE (NEGATIVE); PROTEIN,URINE TRACE mg/dL (NEGATIVE); UROBILINOGEN,URINE 1 mg/dL (NEGATIVE)
[2024-05-24 14:29] LABS: APPEARANCE,URINE CLOUDY (CLEAR); COLOR,URINE YELLOW (YELLOW); RBC,URINE NOT SEEN (0-5); SQUAMOUS EPITHELIAL CELLS,UR RARE (NS,R,O)
[2024-05-24 14:30] LABS: BACTERIA,URINE MANY (NS)
[2024-05-24] MEDS ORDERED: Melatonin 3 MG Tab PO PRN (15:53)
[2024-05-24] MEDS ORDERED: Acetaminophen 650 MG Supp RECTAL PRN (15:53)
[2024-05-24] MEDS: cefTRIAXone 1 GM in Sodium Chloride 0.9% 50 ML IV SCH (18:18)
[2024-05-24] MEDS ORDERED: LORazepam 2 MG/ML SDV IVPUSH PRN (18:31)
[2024-05-24] MEDS: Sodium Chloride 0.9% 1,000 ML IV SCH (18:42)
[2024-05-25 07:18] LABS: BASOPHILS ABSOLUTE AUTO 0.1 x10-3/uL (0.0-0.1); BASOPHILS PERCENT AUTO 1.3 % (0.2-1.5); EOSINOPHILS ABSOLUTE AUTO 0.2 x10-3/uL (0.0-0.8); EOSINOPHILS PERCENT AUTO 2.2 % (0.6-8.1); HEMATOCRIT 33.4 % (34.2-48.2); HEMOGLOBIN 10.4 g/dL (11.4-15.5); LYMPHOCYTES ABSOLUTE AUTO 2.1 x10-3/uL (1.0-4.4); LYMPHOCYTES PERCENT AUTO 21.1 % (18.4-52.1); MEAN CORPUSCULAR HEMOGLOBIN 26.6 pg (23.9-33.9); MEAN CORPUSCULAR HGB CONC 31.1 g/dL (31.9-34.8); MEAN CORPUSCULAR VOLUME 85.7 fL (76.7-100.5); MEAN PLATELET VOLUME 8.1 fL (7.1-12.4); MONOCYTES ABSOLUTE AUTO 1.4 x10-3/uL (0.3-1.0); MONOCYTES PERCENT AUTO 14.2 % (4.4-15.7); NEUTROPHILS ABSOLUTE AUTO 6.1 x10-3/uL (1.5-6.3); NEUTROPHILS PERCENT AUTO 61.2 % (30.8-76.2); RED CELL DISTRIBUTION WIDTH 15.2 % (12.3-16.5); WHITE BLOOD CELL COUNT,WBC 11.5 x10-3/uL (3.0-10.3)
[2024-05-25 07:38] LABS: A/G RATIO 0.9; ALANINE AMINOTRANSFERASE,ALT 39 U/L (12-36); ALBUMIN 2.8 g/dL (3.2-4.6); ALKALINE PHOSPHATASE 86 IU/L (56-112); ASPARTATE AMNIOTRANSFERASE,AST 40 IU/L (5-25); BLOOD UREA NITROGEN,BUN 26 mg/dL (7-18); BUN/CREATININE RATIO 37.1 (9-20); CALCIUM 8.3 mg/dL (8.6-10.2); CARBON DIOXIDE,CO2 28 mmol/L (21-32); CHLORIDE,CL 100 mmol/L (100-110); CREATININE 0.7 mg/dL (0.55-1.02); EST CRCL DRUG DOSING (CG) 65.45 mL/min; ESTIMATED GFR 89 mL/min (>60); GLUCOSE RANDOM 112 mg/dL (80-116); POTASSIUM,K 3.4 mmol/L (3.5-5.3); PROTEIN TOTAL,TP 5.9 g/dL (6.0-8.0); SODIUM,NA 136 mmol/L (135-145)
[2024-05-25 07:49] LABS: PLATELET COUNT,PLT 208 x10(3)uL (151-488)
[2024-05-25] MEDS ORDERED: Hydrocortisone 2.5% Crm 30 GM Tube TOP PRN (09:27)
[2024-05-25] MEDS ORDERED: guaiFENesin 100 MG/5 ML Soln 5 ML UD Cup PO PRN (09:27)
[2024-05-25] MEDS ORDERED: Bisacodyl 10 MG Supp RECTAL PRN (09:27)
[2024-05-25] MEDS ORDERED: Magnesium Hydroxide 400 MG/5 ML Susp 30 ML Cup PO PRN (09:27)
[2024-05-25] MEDS ORDERED: Prochlorperazine 5 MG Tab PO PRN (09:27)
[2024-05-25] MEDS ORDERED: Ondansetron 4 MG Tab.DIS PO PRN (09:27)
[2024-05-25] MEDS ORDERED: Aluminum Hydroxide/Magnesium Hydroxide Susp 30 ML Cup PO PRN (09:27)
[2024-05-25] MEDS ORDERED: Carbamide Peroxide 6.5% Otic Soln 15 ML Bottle EARBOTH PRN (09:27)
[2024-05-25] MEDS ORDERED: Ibuprofen 400 MG Tab PO PRN (09:27)
[2024-05-25] MEDS ORDERED: Loperamide 2 MG Cap PO PRN (09:27)
[2024-05-25] MEDS: Potassium Chloride 20 MEQ in Premix Bag 1 BAG IV ONE (10:22)
[2024-05-25] MEDS: Magnesium Oxide 400 MG Tab PO SCH (13:46)
[2024-05-25] MEDS: Propranolol 60 MG Cap.ER PO SCH (13:47)
[2024-05-25] MEDS: Cyclobenzaprine 10 MG Tab PO SCH (13:47)
[2024-05-25] MEDS: Hydrochlorothiazide 12.5 MG Cap PO SCH (13:47)
[2024-05-25] MEDS: Escitalopram 20 MG Tab PO SCH (13:47)
[2024-05-25] MEDS: Sennosides 8.6 MG Tab PO PRN (13:47)
[2024-05-25] MEDS: Mirtazapine 15 MG Tab PO SCH (13:48)
[2024-05-25] MEDS: ALPRAZolam 0.25 MG Tab PO SCH (13:48)
[2024-05-25] MEDS: Gabapentin 300 MG Cap PO SCH (13:48)
[2024-05-25] MEDS: Benztropine 0.5 MG Tab PO SCH (16:27)
[2024-05-25] MEDS: busPIRone 5 MG Tab PO SCH (16:34)
[2024-05-25] MEDS: cefTRIAXone 1 GM Vial IV SCH (16:36)
[2024-05-25] MEDS: Sodium Chloride 0.9% 10 ML Syringe FLUSH PRN (16:39)
[2024-05-25] MEDS: Hyoscyamine 0.125 MG Tab.SL PO SCH (19:59)
[2024-05-26] MEDS: Loratadine 10 MG Tab PO SCH (06:15)
[2024-05-26 07:12] LABS: BASOPHILS ABSOLUTE AUTO 0.1 x10-3/uL (0.0-0.1); BASOPHILS PERCENT AUTO 0.9 % (0.2-1.5); EOSINOPHILS ABSOLUTE AUTO 0.2 x10-3/uL (0.0-0.8); EOSINOPHILS PERCENT AUTO 4.4 % (0.6-8.1); HEMOGLOBIN 10.5 g/dL (11.4-15.5); LYMPHOCYTES ABSOLUTE AUTO 1.3 x10-3/uL (1.0-4.4); LYMPHOCYTES PERCENT AUTO 24.7 % (18.4-52.1); MEAN CORPUSCULAR HGB CONC 33.9 g/dL (31.9-34.8); MEAN CORPUSCULAR VOLUME 85.7 fL (76.7-100.5); MEAN PLATELET VOLUME 7.3 fL (7.1-12.4); MONOCYTES ABSOLUTE AUTO 0.7 x10-3/uL (0.3-1.0); PLATELET COUNT,PLT 295 x10(3)uL (151-488); RED BLOOD CELL COUNT 3.62 x10(6)uL (3.60-5.20); RED CELL DISTRIBUTION WIDTH 15.1 % (12.3-16.5); WHITE BLOOD CELL COUNT,WBC 5.3 x10-3/uL (3.0-10.3)
[2024-05-26 07:16] LABS: BLOOD UREA NITROGEN,BUN 17 mg/dL (7-18); BUN/CREATININE RATIO 28.3 (9-20); CALCIUM 8.4 mg/dL (8.6-10.2); CARBON DIOXIDE,CO2 27 mmol/L (21-32); CHLORIDE,CL 108 mmol/L (100-110); CREATININE 0.6 mg/dL (0.55-1.02); EST CRCL DRUG DOSING (CG) 76.36 mL/min; ESTIMATED GFR 92 mL/min (>60); GLUCOSE RANDOM 110 mg/dL (80-116); MAGNESIUM 1.7 mg/dL (1.8-2.5); SODIUM,NA 143 mmol/L (135-145)
[2024-05-26] MEDS ORDERED: Sennosides/Docusate Sodium 50-8.6 MG Tab PO PRN (07:51)
[2024-05-26] MEDS: Polyethylene Glycol 3350 Powder 17 GM Packet PO SCH (08:52)
[2024-05-26] MEDS: Potassium Chloride 20 MEQ in Premix Bag 1 BAG IV SCH (09:33)
[2024-05-26] MEDS: Magnesium Oxide 400 MG Tab PO ONE (09:33)
[2024-05-26] MEDS: Pantoprazole 40 MG Tab.CR PO SCH (10:35)
[2024-05-26] MEDS: Acetaminophen 325 MG Tab PO PRN (13:56)
[2024-05-26] MEDS: Mirtazapine 15 MG Tab PO SCH (20:10)
[2024-05-26] MEDS: Cyclobenzaprine 10 MG Tab PO SCH (20:11)
[2024-05-27 06:49] LABS: BASOPHILS PERCENT AUTO 0.8 % (0.2-1.5); EOSINOPHILS ABSOLUTE AUTO 0.3 x10-3/uL (0.0-0.8); EOSINOPHILS PERCENT AUTO 4.8 % (0.6-8.1); HEMATOCRIT 34.3 % (34.2-48.2); HEMOGLOBIN 11.4 g/dL (11.4-15.5); LYMPHOCYTES PERCENT AUTO 30.5 % (18.4-52.1); MEAN CORPUSCULAR HEMOGLOBIN 28.7 pg (23.9-33.9); MEAN CORPUSCULAR HGB CONC 33.4 g/dL (31.9-34.8); MEAN CORPUSCULAR VOLUME 86.1 fL (76.7-100.5); MEAN PLATELET VOLUME 7.4 fL (7.1-12.4); MONOCYTES ABSOLUTE AUTO 0.9 x10-3/uL (0.3-1.0); MONOCYTES PERCENT AUTO 13.8 % (4.4-15.7); NEUTROPHILS ABSOLUTE AUTO 3.2 x10-3/uL (1.5-6.3); NEUTROPHILS PERCENT AUTO 50.1 % (30.8-76.2); PLATELET COUNT,PLT 365 x10(3)uL (151-488); RED BLOOD CELL COUNT 3.99 x10(6)uL (3.60-5.20); RED CELL DISTRIBUTION WIDTH 15.3 % (12.3-16.5); WHITE BLOOD CELL COUNT,WBC 6.4 x10-3/uL (3.0-10.3)
[2024-05-27 06:53] LABS: BLOOD UREA NITROGEN,BUN 14 mg/dL (7-18); CALCIUM 8.9 mg/dL (8.6-10.2); CARBON DIOXIDE,CO2 29 mmol/L (21-32); CHLORIDE,CL 107 mmol/L (100-110); CREATININE 0.7 mg/dL (0.55-1.02); EST CRCL DRUG DOSING (CG) 65.45 mL/min; ESTIMATED GFR 89 mL/min (>60); GLUCOSE RANDOM 115 mg/dL (80-116); POTASSIUM,K 3.4 mmol/L (3.5-5.3); SODIUM,NA 142 mmol/L (135-145)
[2024-05-27] MEDS: Potassium Chloride 20 MEQ in Premix Bag 1 BAG IV ONE (10:28)
== END 2024-05-27 15:00 | disposition home health service (06) | DRG 690 ==
LOC: FB.ED 11:31 → FB.MS 14:42
PROVIDERS: ADMIT Internal Medicine; ATTEND Internal Medicine
DX: N30.01 Acute cystitis with hematuria (principal); E87.20 Acidosis, unspecified; Z66 Do not resuscitate; I10 Essential (primary) hypertension; F41.9 Anxiety disorder, unspecified; F32.A Depression, unspecified; Z88.6 Allergy status to analgesic agent; E66.9 Obesity, unspecified; E86.0 Dehydration; M54.50 Low back pain, unspecified; R29.6 Repeated falls; K58.0 Irritable bowel syndrome with diarrhea; R58 Hemorrhage, not elsewhere classified; S30.0XXA Contusion of lower back and pelvis, initial encounter; Z88.8 Allergy status to other drugs, medicaments and biological substances; Z91.041 Radiographic dye allergy status; Z79.899 Other long term (current) drug therapy; Z68.29 Body mass index [BMI] 29.0-29.9, adult; Z98.890 Other specified postprocedural states; Z90.89 Acquired absence of other organs; Z98.49 Cataract extraction status, unspecified eye; X58.XXXA Exposure to other specified factors, initial encounter
CPT/HCPCS: 36415; 70450; 72192; 80048; 80053; 81001; 83605; 83735; 85025; 86140; 87040; 87086; 87088; 94150; 96360; 97161-GP; 97165-GO; 97530-GP; 99222; 99232; 99238; 99285; 99285-25; A9270-GY; J0696; J3480; J3490; J7030

== ENCOUNTER 2024-06-06 03:18 | Emergency (ER) | payer MEDICARE, BC ==
[2024-06-06] MEDS: hydrOXYzine HCl 50 MG/ML SDV IM ONE (03:51)
[2024-06-06] MEDS: Ketorolac 30 MG/ML SDV IM ONE (03:52)
[2024-06-06 04:28] LABS: BASOPHILS ABSOLUTE AUTO 0.1 x10-3/uL (0.0-0.1); BASOPHILS PERCENT AUTO 0.8 % (0.2-1.5); EOSINOPHILS ABSOLUTE AUTO 0.1 x10-3/uL (0.0-0.8); HEMATOCRIT 43.9 % (34.2-48.2); HEMOGLOBIN 14.5 g/dL (11.4-15.5); LYMPHOCYTES ABSOLUTE AUTO 1.8 x10-3/uL (1.0-4.4); LYMPHOCYTES PERCENT AUTO 17.7 % (18.4-52.1); MEAN CORPUSCULAR HEMOGLOBIN 28.5 pg (23.9-33.9); MEAN CORPUSCULAR VOLUME 86.4 fL (76.7-100.5); MEAN PLATELET VOLUME 8.1 fL (7.1-12.4); MONOCYTES ABSOLUTE AUTO 0.9 x10-3/uL (0.3-1.0); MONOCYTES PERCENT AUTO 8.5 % (4.4-15.7); NEUTROPHILS ABSOLUTE AUTO 7.5 x10-3/uL (1.5-6.3); PLATELET COUNT,PLT 418 x10(3)uL (151-488); WHITE BLOOD CELL COUNT,WBC 10.4 x10-3/uL (3.0-10.3)
[2024-06-06 04:34] LABS: BLOOD UREA NITROGEN,BUN 26 mg/dL (7-18); CALCIUM 9.7 mg/dL (8.6-10.2); CARBON DIOXIDE,CO2 32 mmol/L (21-32); CHLORIDE,CL 101 mmol/L (100-110); EST CRCL DRUG DOSING (CG) 40.68 mL/min; ESTIMATED GFR 58 mL/min (>60); GLUCOSE RANDOM 156 mg/dL (80-116); POTASSIUM,K 3.8 mmol/L (3.5-5.3); SODIUM,NA 140 mmol/L (135-145)
[2024-06-06 04:35] LABS: RED BLOOD CELL COUNT 5.08 x10(6)uL (3.60-5.20)
== END 2024-06-06 05:13 | disposition home or self-care (01) ==
LOC: FB.ED 03:18
DX: M54.50 Low back pain, unspecified (principal); I10 Essential (primary) hypertension; E66.9 Obesity, unspecified; R29.6 Repeated falls; F41.0 Panic disorder [episodic paroxysmal anxiety]; M53.3 Sacrococcygeal disorders, not elsewhere classified; G89.29 Other chronic pain; Z79.899 Other long term (current) drug therapy; Z88.8 Allergy status to other drugs, medicaments and biological substances
CPT/HCPCS: 36415; 70450; 72125; 80048; 83605; 85025; 86140; 87040; 96372; 99284; 99285; J1885; J3410

== ENCOUNTER 2025-03-07 18:29 | Emergency (ER) | payer MEDICARE, BC ==
[2025-03-07] MEDS ORDERED: Sodium Chloride 0.9% 10 ML Syringe FLUSH PRN (19:15)
[2025-03-07] MEDS: LORazepam 2 MG/ML SDV IVPUSH PRN (19:35)
[2025-03-07 19:38] LABS: BASOPHILS ABSOLUTE AUTO 0.0 x10-3/uL (0.0-0.1); BASOPHILS PERCENT AUTO 0.8 % (0.2-1.5); EOSINOPHILS ABSOLUTE AUTO 0.0 x10-3/uL (0.0-0.8); EOSINOPHILS PERCENT AUTO 0.9 % (0.6-8.1); LYMPHOCYTES ABSOLUTE AUTO 2.1 x10-3/uL (1.0-4.4); LYMPHOCYTES PERCENT AUTO 40.0 % (18.4-52.1); MEAN PLATELET VOLUME 7.5 fL (7.1-12.4); MONOCYTES ABSOLUTE AUTO 0.5 x10-3/uL (0.3-1.0); MONOCYTES PERCENT AUTO 9.4 % (4.4-15.7); NEUTROPHILS ABSOLUTE AUTO 2.5 x10-3/uL (1.5-6.3); NEUTROPHILS PERCENT AUTO 48.9 % (30.8-76.2); PLATELET COUNT,PLT 262 x10(3)uL (151-488); RED BLOOD CELL COUNT 5.12 x10(6)uL (3.60-5.20); RED CELL DISTRIBUTION WIDTH 17.2 % (12.3-16.5); WHITE BLOOD CELL COUNT,WBC 5.2 x10-3/uL (3.0-10.3)
[2025-03-07 19:51] LABS: BLOOD UREA NITROGEN,BUN 16 mg/dL (7-18); CARBON DIOXIDE,CO2 26 mmol/L (21-32); CHLORIDE,CL 102 mmol/L (100-110); CREATININE 0.9 mg/dL (0.55-1.02); ESTIMATED GFR 65 mL/min (>60); GLUCOSE RANDOM 123 mg/dL (80-116); SODIUM,NA 137 mmol/L (135-145)
[2025-03-07 20:02] LABS: A/G RATIO 0.9; ALANINE AMINOTRANSFERASE,ALT 33 U/L (12-36); BILIRUBIN TOTAL 0.7 mg/dL (0.1-1.3); PROTEIN TOTAL,TP 7.3 g/dL (6.0-8.0)
[2025-03-07 20:08] LABS: ASPARTATE AMNIOTRANSFERASE,AST 38 IU/L (5-25); POTASSIUM,K 4.1 mmol/L (3.5-5.3)
[2025-03-07 21:31] LABS: GLUCOSE,URINE NORMAL (NORMAL); OCCULT BLOOD,URINE NEGATIVE (NEGATIVE)
[2025-03-07 21:34] LABS: AMPHETAMINES SCREEN, URINE NEGATIVE (NEGATIVE); APPEARANCE,URINE CLEAR (CLEAR); METHADONE SCREEN, URINE NEGATIVE (NEGATIVE); METHAMPHETAMINE SCREEN, URINE NEGATIVE (NEGATIVE); OXYCODONE SCREEN,URINE NEGATIVE (NEGATIVE)
[2025-03-07 21:35] LABS: BUPRENORPHINE SCREEN,URINE NEGATIVE (NEGATIVE)
== END 2025-03-07 21:20 | disposition home or self-care (01) ==
LOC: FB.ED 18:29
DX: F41.9 Anxiety disorder, unspecified (principal); I10 Essential (primary) hypertension; E66.9 Obesity, unspecified; Z91.041 Radiographic dye allergy status; Z88.8 Allergy status to other drugs, medicaments and biological substances; Z79.899 Other long term (current) drug therapy
CPT/HCPCS: 74176; 80053; 80307; 81003; 85025; 96361; 96374; 99284; J2060; J7030

== ENCOUNTER 2025-03-09 05:43 | Emergency (ER) | payer MEDICARE, BC | END 2025-03-09 06:35 | disposition home or self-care (01) | LOC: SUPCPDRO 05:43 → FB.ED 05:43 | DX: F41.9 Anxiety disorder, unspecified (principal); I10 Essential (primary) hypertension; Z88.6 Allergy status to analgesic agent; Z91.041 Radiographic dye allergy status; Z79.899 Other long term (current) drug therapy | CPT/HCPCS: 99283; 99284 ==

== ENCOUNTER 2025-03-09 19:37 | Emergency (ER) | payer MEDICARE, BC ==
[2025-03-09 20:03] LABS: BASOPHILS ABSOLUTE AUTO 0.0 x10-3/uL (0.0-0.1); BASOPHILS PERCENT AUTO 0.7 % (0.2-1.5); EOSINOPHILS ABSOLUTE AUTO 0.1 x10-3/uL (0.0-0.8); EOSINOPHILS PERCENT AUTO 0.9 % (0.6-8.1); LYMPHOCYTES ABSOLUTE AUTO 2.6 x10-3/uL (1.0-4.4); LYMPHOCYTES PERCENT AUTO 47.1 % (18.4-52.1); MEAN PLATELET VOLUME 7.4 fL (7.1-12.4); MONOCYTES ABSOLUTE AUTO 0.5 x10-3/uL (0.3-1.0); MONOCYTES PERCENT AUTO 9.5 % (4.4-15.7); NEUTROPHILS ABSOLUTE AUTO 2.3 x10-3/uL (1.5-6.3); NEUTROPHILS PERCENT AUTO 41.8 % (30.8-76.2); PLATELET COUNT,PLT 254 x10(3)uL (151-488); RED CELL DISTRIBUTION WIDTH 17.2 % (12.3-16.5); WHITE BLOOD CELL COUNT,WBC 5.6 x10-3/uL (3.0-10.3)
[2025-03-09 20:06] LABS: BLOOD UREA NITROGEN,BUN 14 mg/dL (7-18); CARBON DIOXIDE,CO2 22 mmol/L (21-32); CHLORIDE,CL 102 mmol/L (100-110); CREATININE 0.8 mg/dL (0.55-1.02); ESTIMATED GFR 75 mL/min (>60); GLUCOSE RANDOM 133 mg/dL (80-116); POTASSIUM,K 3.6 mmol/L (3.5-5.3); SODIUM,NA 136 mmol/L (135-145)
[2025-03-09 20:12] LABS: A/G RATIO 1.2; ALANINE AMINOTRANSFERASE,ALT 26 U/L (12-36); ASPARTATE AMNIOTRANSFERASE,AST 20 IU/L (5-25); BILIRUBIN TOTAL 0.8 mg/dL (0.1-1.3); PROTEIN TOTAL,TP 6.9 g/dL (6.0-8.0)
[2025-03-09 20:13] LABS: RED BLOOD CELL COUNT 5.10 x10(6)uL (3.60-5.20)
[2025-03-09 21:19] LABS: APPEARANCE,URINE CLEAR (CLEAR); GLUCOSE,URINE NORMAL (NORMAL); OCCULT BLOOD,URINE MODERATE (NEGATIVE)
[2025-03-09 21:25] LABS: SQUAMOUS EPITHELIAL CELLS,UR RARE (NS,R,O)
[2025-03-09 21:28] LABS: AMPHETAMINES SCREEN, URINE NEGATIVE (NEGATIVE); BUPRENORPHINE SCREEN,URINE NEGATIVE (NEGATIVE); METHADONE SCREEN, URINE NEGATIVE (NEGATIVE); METHAMPHETAMINE SCREEN, URINE NEGATIVE (NEGATIVE); OXYCODONE SCREEN,URINE NEGATIVE (NEGATIVE)
== END 2025-03-09 22:55 ==
LOC: FB.ED 19:37
DX: F41.9 Anxiety disorder, unspecified (principal); I10 Essential (primary) hypertension; Z88.6 Allergy status to analgesic agent; Z88.8 Allergy status to other drugs, medicaments and biological substances; Z91.041 Radiographic dye allergy status; Z79.899 Other long term (current) drug therapy
CPT/HCPCS: 36415; 80053; 80307; 81001; 85025; 87426; 96372; 99284; J2359; 99285

== ENCOUNTER 2025-03-28 18:35 | Emergency (ER) | payer MEDICARE, BC ==
[2025-03-28] MEDS: LORazepam 2 MG/ML SDV IM ONE (18:48)
== END 2025-03-28 19:45 | disposition home or self-care (01) ==
LOC: FB.ED 18:35
DX: F41.9 Anxiety disorder, unspecified (principal); I10 Essential (primary) hypertension; Z88.6 Allergy status to analgesic agent; Z88.8 Allergy status to other drugs, medicaments and biological substances; Z91.041 Radiographic dye allergy status; Z79.899 Other long term (current) drug therapy
CPT/HCPCS: 96372; 99283; J2060

== ENCOUNTER 2025-04-12 19:44 | Emergency (ER) | payer MEDICARE, BC ==
[2025-04-12 20:09] LABS: BASOPHILS ABSOLUTE AUTO 0.1 x10-3/uL (0.0-0.1); BASOPHILS PERCENT AUTO 0.7 % (0.2-1.5); EOSINOPHILS ABSOLUTE AUTO 0.2 x10-3/uL (0.0-0.8); EOSINOPHILS PERCENT AUTO 1.5 % (0.6-8.1); LYMPHOCYTES ABSOLUTE AUTO 2.6 x10-3/uL (1.0-4.4); LYMPHOCYTES PERCENT AUTO 22.3 % (18.4-52.1); MEAN PLATELET VOLUME 7.3 fL (7.1-12.4); MONOCYTES ABSOLUTE AUTO 0.9 x10-3/uL (0.3-1.0); MONOCYTES PERCENT AUTO 7.7 % (4.4-15.7); NEUTROPHILS ABSOLUTE AUTO 7.8 x10-3/uL (1.5-6.3); NEUTROPHILS PERCENT AUTO 67.8 % (30.8-76.2); PLATELET COUNT,PLT 308 x10(3)uL (151-488); RED BLOOD CELL COUNT 4.89 x10(6)uL (3.60-5.20); RED CELL DISTRIBUTION WIDTH 16.2 % (12.3-16.5); WHITE BLOOD CELL COUNT,WBC 11.5 x10-3/uL (3.0-10.3)
[2025-04-12 20:11] LABS: BLOOD UREA NITROGEN,BUN 23 mg/dL (7-18); CARBON DIOXIDE,CO2 25 mmol/L (21-32); CHLORIDE,CL 105 mmol/L (100-110); CREATININE 0.7 mg/dL (0.55-1.02); ESTIMATED GFR 88 mL/min (>60); GLUCOSE RANDOM 130 mg/dL (80-116); POTASSIUM,K 4.0 mmol/L (3.5-5.3); SODIUM,NA 140 mmol/L (135-145)
[2025-04-12 20:18] LABS: A/G RATIO 1.0; ALANINE AMINOTRANSFERASE,ALT 57 U/L (12-36); ASPARTATE AMNIOTRANSFERASE,AST 35 IU/L (5-25); BILIRUBIN TOTAL 0.6 mg/dL (0.1-1.3); PROTEIN TOTAL,TP 7.2 g/dL (6.0-8.0)
[2025-04-12] MEDS ORDERED: Sodium Chloride 0.9% 10 ML Syringe FLUSH PRN (20:28)
[2025-04-12] MEDS: Magnesium Sulfate 2 GM/50 mL 2 GM in Premix Bag 1 BAG IV ONE (20:45)
[2025-04-12 21:27] LABS: GLUCOSE,URINE NORMAL (NORMAL); OCCULT BLOOD,URINE TRACE (NEGATIVE)
[2025-04-12 21:33] LABS: APPEARANCE,URINE CLEAR (CLEAR)
[2025-04-12 21:34] LABS: FINE GRANULAR CASTS,URINE OCCASIONAL (NS); SQUAMOUS EPITHELIAL CELLS,UR FEW (NS,R,O)
== END 2025-04-13 00:07 | disposition home or self-care (01) ==
LOC: FB.ED 19:44
DX: K52.9 Noninfective gastroenteritis and colitis, unspecified (principal); E86.0 Dehydration; K92.1 Melena; I10 Essential (primary) hypertension; Z90.49 Acquired absence of other specified parts of digestive tract; Z88.6 Allergy status to analgesic agent; Z88.8 Allergy status to other drugs, medicaments and biological substances; Z91.041 Radiographic dye allergy status; Z79.899 Other long term (current) drug therapy
CPT/HCPCS: 36415; 74176; 80053; 81001; 82272; 83605; 83690; 83735; 85018; 85025; 86140; 96361; 96365; 99285; A9270; J3475; J7030

== ENCOUNTER 2025-04-24 18:22 | Emergency (ER) | payer MEDICARE, BC ==
[2025-04-24] MEDS: Ketorolac 30 MG/ML SDV IM ONE (20:08)
[2025-04-24] MEDS: hydrOXYzine HCl 50 MG/ML SDV IM ONE (20:09)
[2025-04-24] MEDS: LORazepam 2 MG/ML SDV IM ONE (20:14)
== END 2025-04-24 21:02 | disposition home or self-care (01) ==
LOC: FB.ED 18:22
DX: G89.29 Other chronic pain (principal); M54.50 Low back pain, unspecified; F41.0 Panic disorder [episodic paroxysmal anxiety]; I10 Essential (primary) hypertension; E66.9 Obesity, unspecified; Z79.899 Other long term (current) drug therapy; Z88.5 Allergy status to narcotic agent; Z88.8 Allergy status to other drugs, medicaments and biological substances; Z91.041 Radiographic dye allergy status
CPT/HCPCS: 96372; 99283; J2060; J3410; J1885

== ENCOUNTER 2025-04-29 18:43 | Emergency (ER) | payer MEDICARE, BC ==
[2025-04-29] MEDS ORDERED: Sodium Chloride 0.9% 10 ML Syringe FLUSH PRN (19:20)
[2025-04-29] MEDS: LORazepam 2 MG/ML SDV IVPUSH STA (19:44)
[2025-04-29] MEDS: Prochlorperazine 10 MG/2 ML SDV IVPUSH ONE (19:47)
[2025-04-29 19:49] LABS: BASOPHILS ABSOLUTE AUTO 0.1 x10-3/uL (0.0-0.1); BASOPHILS PERCENT AUTO 1.0 % (0.2-1.5); EOSINOPHILS ABSOLUTE AUTO 0.7 x10-3/uL (0.0-0.8); EOSINOPHILS PERCENT AUTO 12.2 % (0.6-8.1); LYMPHOCYTES ABSOLUTE AUTO 2.7 x10-3/uL (1.0-4.4); LYMPHOCYTES PERCENT AUTO 50.7 % (18.4-52.1); MEAN PLATELET VOLUME 7.5 fL (7.1-12.4); MONOCYTES ABSOLUTE AUTO 0.6 x10-3/uL (0.3-1.0); MONOCYTES PERCENT AUTO 10.5 % (4.4-15.7); NEUTROPHILS ABSOLUTE AUTO 1.4 x10-3/uL (1.5-6.3); NEUTROPHILS PERCENT AUTO 25.6 % (30.8-76.2); PLATELET COUNT,PLT 338 x10(3)uL (151-488); RED CELL DISTRIBUTION WIDTH 17.0 % (12.3-16.5); WHITE BLOOD CELL COUNT,WBC 5.4 x10-3/uL (3.0-10.3)
[2025-04-29 19:52] LABS: RED BLOOD CELL COUNT 4.71 x10(6)uL (3.60-5.20)
[2025-04-29 19:56] LABS: BLOOD UREA NITROGEN,BUN 15 mg/dL (7-18); CARBON DIOXIDE,CO2 26 mmol/L (21-32); CHLORIDE,CL 105 mmol/L (100-110); CREATININE 0.6 mg/dL (0.55-1.02); EST CRCL DRUG DOSING (CG) 75.15 mL/min; ESTIMATED GFR 92 mL/min (>60); GLUCOSE RANDOM 103 mg/dL (80-116); POTASSIUM,K 4.7 mmol/L (3.5-5.3); SODIUM,NA 139 mmol/L (135-145)
[2025-04-29 20:02] LABS: A/G RATIO 0.8; ALANINE AMINOTRANSFERASE,ALT 18 U/L (12-36); ASPARTATE AMNIOTRANSFERASE,AST 45 IU/L (5-25); BILIRUBIN TOTAL 0.6 mg/dL (0.1-1.3); PROTEIN TOTAL,TP 6.6 g/dL (6.0-8.0)
== END 2025-04-29 21:02 | disposition home or self-care (01) ==
LOC: FB.ED 18:43
DX: R10.9 Unspecified abdominal pain (principal); G89.29 Other chronic pain; F41.1 Generalized anxiety disorder; I10 Essential (primary) hypertension; Z88.6 Allergy status to analgesic agent; Z88.8 Allergy status to other drugs, medicaments and biological substances; Z91.041 Radiographic dye allergy status; Z79.899 Other long term (current) drug therapy
CPT/HCPCS: 36415; 80053; 83690; 85025; 96361; 96374; 96375; 99284-25; J0780; J2060; J2470; J7030

== ENCOUNTER 2025-05-03 18:21 | Emergency (ER) | payer MEDICARE, BC ==
[2025-05-03] MEDS: fentaNYL 100 MCG/2 ML SDV IM ONE (18:41)
== END 2025-05-03 19:32 | disposition home or self-care (01) ==
LOC: FB.ED 18:21
DX: F41.9 Anxiety disorder, unspecified (principal); R19.7 Diarrhea, unspecified; I10 Essential (primary) hypertension; Z88.6 Allergy status to analgesic agent; Z91.041 Radiographic dye allergy status; Z79.899 Other long term (current) drug therapy
CPT/HCPCS: 96372; 99283; J3010; J2359

== ENCOUNTER 2025-05-04 17:09 | Emergency (ER) | payer MEDICARE, BC | END 2025-05-04 18:36 | disposition home or self-care (01) | LOC: FB.ED 17:09 | DX: F41.9 Anxiety disorder, unspecified (principal); I10 Essential (primary) hypertension; E66.9 Obesity, unspecified; Z88.6 Allergy status to analgesic agent; Z88.8 Allergy status to other drugs, medicaments and biological substances; Z91.041 Radiographic dye allergy status; Z98.49 Cataract extraction status, unspecified eye; Z90.49 Acquired absence of other specified parts of digestive tract | CPT/HCPCS: 96372; 99283; J2359 ==

== ENCOUNTER 2025-05-14 13:50 | Emergency (ER) | payer MEDICARE, BC ==
[2025-05-14] MEDS: Prochlorperazine 10 MG/2 ML SDV IM ONE (14:15)
[2025-05-14] MEDS: LORazepam 2 MG/ML SDV IM STA (14:15)
== END 2025-05-14 15:19 | disposition home or self-care (01) ==
LOC: FB.ED 13:50
DX: M54.50 Low back pain, unspecified (principal); G89.29 Other chronic pain; R10.9 Unspecified abdominal pain; I10 Essential (primary) hypertension; Z88.6 Allergy status to analgesic agent; Z91.041 Radiographic dye allergy status; Z79.899 Other long term (current) drug therapy
CPT/HCPCS: 96372; 99283; J0780; J2060

== ENCOUNTER 2025-06-18 12:21 | Emergency (ER) | payer MEDICARE, BC ==
[2025-06-18] MEDS: Prochlorperazine 10 MG/2 ML SDV IM ONE (12:52)
[2025-06-18] MEDS: LORazepam 2 MG/ML SDV IM STA (12:52)
[2025-06-18] MEDS: LORazepam 2 MG/ML SDV IVPUSH ONE (12:52)
[2025-06-18] MEDS: Sodium Chloride 0.9% 10 ML Syringe FLUSH PRN (12:53)
[2025-06-18 13:54] LABS: GLUCOSE,URINE NORMAL (NORMAL); OCCULT BLOOD,URINE NEGATIVE (NEGATIVE)
[2025-06-18 13:55] LABS: APPEARANCE,URINE CLEAR (CLEAR)
== END 2025-06-18 14:42 | disposition home or self-care (01) ==
LOC: FB.ED 12:21
DX: F41.1 Generalized anxiety disorder (principal); G89.29 Other chronic pain; M54.50 Low back pain, unspecified; E86.0 Dehydration; I10 Essential (primary) hypertension; E66.9 Obesity, unspecified; Z88.8 Allergy status to other drugs, medicaments and biological substances; Z91.041 Radiographic dye allergy status; Z90.49 Acquired absence of other specified parts of digestive tract; Z90.89 Acquired absence of other organs; Z79.899 Other long term (current) drug therapy; Z68.29 Body mass index [BMI] 29.0-29.9, adult
CPT/HCPCS: 81003; 96372; 96374; 99284; J0780; J2060